=== PATIENT | female | born 1970 | race Caucasian/White ===

== ENCOUNTER → 2017-10-15 | Outpatient (CLI) | payer BC ==
[2017-10-15 13:28] VITALS: BP 121/84; PULSE 97; TEMP 98.2; BMI 27.1
--- NOTE | 2017-10-15 14:08 | P.GSHP ---
History of Present Illness H&P Date: 10/15/17 The patient is a 47-year-old white female who on a routine screening mammogram was noted to have an area of increased microcalcifications in the left breast in the upper outer quadrant area. She underwent stereotactic core biopsy of this area on 09/30/2017 and 2 samples were obtained. The first sample pathologically revealed atypical lobular hyperplasia and a second sample revealed severe atypical ductal hyperplasia changes suspicious for ductal carcinoma in situ. Preprocedure the patient had not noted any changes in her breast no masses or nodules of concern. The patient denies any nipple discharge or changes. The patient is not had any trauma and no evidence of any infection in her breast. family history: maternal grandfather: throat cancer menarche: 14 : 4, 4 children, breast fed: none, first at 33 patient had a hysterectomy, done for prolapse; left ovaries BCP: about 5 years hormones: none past surgical hysterectomy: 1. right breast cyst 2. hysterctomy and bladder suspenscion past medical history: none social history smoke: stopped about 7 months ago, used to smoke 1 PPD for about 15 years alcohol: occasional drugs: none - Constitutional Constitutional: Denies chills, Denies fever - EENT Eyes: denies blurred vision, denies pain Ears: deny: decreased hearing, tinnitus Ears, nose, mouth and throat: Reports headache, Denies sore throat - Breasts Breasts: bilateral: as per HPI - Cardiovascular Comment: high cholesterol Cardiovascular: Reports high blood pressure, Denies chest pain, Denies shortness of breath - Respiratory Comment: former smoker Respiratory: Denies cough, Denies 7 - Gastrointestinal Gastrointestinal: Denies abdominal pain, Denies diarrhea, Denies nausea, Denies vomiting - Genitourinary (Female) Genitourinary: Denies dysuria, Denies hematuria - Menstruation Menstruation: Reports post hysterectomy - Musculoskeletal Musculoskeletal: Denies myalgias - Integumentary Integumentary: Denies pruritus, Denies rash - Neurological Neurological: Denies numbness, Denies weakness - Psychiatric Psychiatric: Denies anxiety, Denies depression - Endocrine Endocrine: Denies fatigue, Denies weight change - Hematologic/Lymphatic Comment: none - Allergic/Immunologic Allergic/Immunologic: Reports seasonal allergies Past Medical History Past Medical History: Hypertension History of Any Multi-Drug Resistant Organisms: None Reported Past Surgical History: Hysterectomy Additional Past Surgical History / Comment(s): 2010 HYSTERECTOMY. 1993 RIGHT BREAST CYST REMOVED Smoking Status: Former smoker Medications and Allergies Home Medications Medication Instructions Recorded Confirmed Type Atorvastatin [Lipitor] 20 mg PO QAM 10/15/17 10/15/17 History Lisinopril [Zestril] 10 mg PO QAM 10/15/17 10/15/17 History Omeprazole [PriLOSEC] 40 mg PO BID 10/15/17 10/15/17 History SUMAtriptan SUCCINATE [Imitrex] 50 mg PO DAILY PRN 10/15/17 10/15/17 History Allergies Allergy/AdvReac Type Severity Reaction Status Date / Time No Known Allergies Allergy Unverified 10/15/17 13:15 Surgical - Exam Vital Signs Temp Pulse BP Pulse Ox 98.2 F 97 121/84 99 10/15/17 13:22 10/15/17 13:22 10/15/17 13:22 10/15/17 13:22 - General well developed, well nourished, no distress - Eyes normal ocular movement, no icteric - ENT no hearing loss, no congestion - Neck no masses, trachea midline - Respiratory normal respiratory effort, clear to auscultation - Cardiovascular Rhythm: regular Heart Sounds: normal: S1, S2 - Abdomen Abdomen: soft, non tender, no guarding, no rigid, no rebound - Integumentary tatoo - Neurologic no disoriented, no combative - Musculoskeletal normal gait, normal posture - Psychiatric oriented to time, oriented to person, oriented to place, speech is normal, memory intact breast exam: right breast: no masses or nodules of concern on multipositional exam, fibrocystic changes right axilla: no adenopathy of concern left breast: echymosis related to core biopsy, multipositional exam no masses of concern, fibrocystic changes left axilla: no adenopathy of concern Results mammograms reviewed with Dr. De Leon
== END | disposition home or self-care (01) ==
LOC: WWCWWP 12:41
PROVIDERS: ATTEND Surgery
DX: Z53.9 Procedure and treatment not carried out, unspecified reason (principal)

== ENCOUNTER 2017-10-26 07:40 | Day surgery (SDC) | payer BC ==
[2017-10-20 15:09] VITALS: BMI 27.1
[~2017-10-26 07:40] MED LIST: DEXAMETHASONE SOD PHOSPHATE 10 MG/ML 1 ML VIAL IV ONE; HEPARIN SODIUM,PORCINE 5,000 UNIT/ML 1 ML VIAL SQ ONE; LACTATED RINGERS 1,000 ML IV SCH; LIDOCAINE 1% 20 ML VIAL (10MG/ML) FOR IV START INTRADERMA PRN; MIDAZOLAM 2 MG/2 ML VIAL IV PRN; ONDANSETRON 4 MG/2 ML VIAL IVP ONE; Pre Op ABX Message 1 EACH MISC MISCELLANE ONE; fentaNYL (PF) 50 MCG/ML 2 ML AMP IV PRN
[2017-10-26] MEDS ORDERED: ALPRAZolam 0.5 MG TAB PO ONE (08:25)
[2017-10-26 08:32] VITALS: RESP 16
--- NOTE | 2017-10-26 08:57 | P.PN ---
Progress Note - Text Progress Note Date: 10/26/17 The patient's case has been presented at tumor board. After discussion and review of the radiographs it has been decided that we will not to do a sentinel node biopsy at this time. I discussed this with the patient and her and they are in agreement. We will proceed with needle localization and excisional biopsy of the area of concern. Depending on results of pathology further recommendation will follow which may necessitate a sentinel node biopsy in the future.
[2017-10-26] MEDS ORDERED: LIDOCAINE 1% INJ 10MG/ML (20 ML MDV) SQ ONE ×2 (09:27→11:56)
[2017-10-26] MEDS ORDERED: SODIUM BICARB 4% 5 ML VIAL (0.48 MEQ/ML) MISCELLANE ONE (09:27)
[2017-10-26] MEDS ORDERED: HEPARIN SODIUM,PORCINE 5,000 UNIT/ML 1 ML VIAL SQ ONE (09:33)
[2017-10-26 10:13] VITALS: TEMP 98
[2017-10-26] MEDS ORDERED: LIDOCAINE 1% INJ 10MG/ML (20 ML MDV) ONE (10:54)
[2017-10-26] MEDS ORDERED: KETOROLAC 30 MG/ML 1 ML VIAL ONE (10:54)
[2017-10-26] MEDS ORDERED: MIDAZOLAM 2 MG/2 ML VIAL ONE (10:54)
[2017-10-26] MEDS ORDERED: fentaNYL (PF) 50 MCG/ML 2 ML AMP ONE (10:54)
[2017-10-26] MEDS ORDERED: PROPOFOL 10 MG/ML 20 ML VIAL IV ONE (10:54)
--- NOTE | 2017-10-26 11:56 | P.OP ---
Date of Procedure: 10/26/17 Preoperative Diagnosis: Left breast stereotactic biopsy atypical hyperplasia Postoperative Diagnosis: Same Procedure(s) Performed: Left breast needle localization excisional biopsy Anesthesia: RINAA Surgeon: Elva Perales Estimated Blood Loss (ml): 30 IV fluids (ml): 600 Pathology: other (breast tissue) Condition: stable Disposition: PACU Indications for Procedure: Stereotactic core biopsy left breast atypical hyperplasia Operative Findings: Very dense breast tissue Description of Procedure: The patient was taken to the operating room and the area of concern in the left breast was localized preoperatively by radiology. The skin was prepped and draped in a sterile fashion after induction of general anesthesia. An incision was made and carried down to the hook of the needle. The breast tissue was very dense with several bleeders were identified and cauterized during the process. The tissue was excised and painted for orientation. Following this the specimen was sent to radiology for x-ray confirmed that the area of concern had been removed. After we were assured that hemostasis was attained titanium clips were placed. The deep tissues were closed using 3-0 Vicryl suture. The skin was closed using 4-0 Monocryl. The patient tolerated the procedure in stable condition. All instrument and sponge counts were correct at the end of the case.
--- NOTE | 2017-10-26 11:58 | P.DS ---
Providers Attending physician: Elva Perales Primary care physician: Annelise Wilkins Plan - Discharge Summary New Discharge Prescriptions: No Action Lisinopril [Zestril] 10 mg PO QAM Atorvastatin [Lipitor] 20 mg PO QAM Omeprazole [PriLOSEC] 40 mg PO BID SUMAtriptan SUCCINATE [Imitrex] 50 mg PO DAILY PRN PRN Reason: Migraine Headache Discharge Medication List Atorvastatin [Lipitor] 20 mg PO QAM 10/15/17 [History] Lisinopril [Zestril] 10 mg PO QAM 10/15/17 [History] Omeprazole [PriLOSEC] 40 mg PO BID 10/15/17 [History] SUMAtriptan SUCCINATE [Imitrex] 50 mg PO DAILY PRN 10/15/17 [History] Follow up Appointment(s)/Referral(s): Elva Perales MD [STAFF PHYSICIAN] - 1 Week Activity/Diet/Wound Care/Special Instructions: Do not drive today Patient may shower after 48 hours Discharge Disposition: HOME SELF-CARE
[2017-10-26 13:53] VITALS: BP 131/92; PULSE 79
--- NOTE | 2017-11-03 10:57 | MM ---
EXAMINATION TYPE: MG surgical specimen LT, MG pre op needle loc LT DATE OF EXAM: 10/26/2017 11:55 AM COMPARISON: NONE HISTORY: Mammotome clip localization Informed consent was obtained and all the patient's questions were answered. The clip in question was localized mammographically. The standard sterile technique was utilized, as well as appropriate local anesthesia with 1% Lidocaine and bicarbonate. Localization needle followed by placement of a guidewire was performed under mammographic guidance. Verification images demonstrate appropriate deployment of the guidewire. The patient tolerated the procedure well and left the department in stable condition. Specimen radiograph demonstrates the clip in question to reside within the specimen. IMPRESSION: Successful needle localization and open biopsy left breast with pathology results pending . Pathology Results: High Risk LEFT BREAST, LUMPECTOMY: Status post prior needle core breast biopsy with post surgical changes. Surrounding Breast Parenchyma: Fibrocystic changes including duct cysts, apocrine metaplasia, usual duct hyperplasia. Focal sclerosing adenosis. Negative for malignancy. Recommendation Follow up mammogram of the left breast in 6 months. MAYRA
== END 2017-10-26 13:50 | disposition home or self-care (01) ==
LOC: OR 07:40
PROVIDERS: ATTEND Surgery
DX: N60.22 Fibroadenosis of left breast (principal); N60.02 Solitary cyst of left breast
CPT/HCPCS: 88307; 76098; 19281; J2250; J1644; J1100; J2405; J2001; J3010; J1885; J2704

== ENCOUNTER → 2017-11-05 | Outpatient (CLI) | payer BC ==
[2017-11-05 09:02] VITALS: BMI 27.1
--- NOTE | 2017-11-05 09:18 | P.PN ---
Progress Note - Text Progress Note Date: 11/05/17 The patient is a 47-year-old white female who is status post needle localization and excisional biopsy on 10/26/2017 for an area of her breast which had shown severe atypical hyperplasia bordering on DCIS. Her final pathology was benign. Her radiograph was reviewed and it was confirmed that the area of concern had been adequately removed. The patient at this time has no complaints. Physical exam: Incision clean and dry Impression/Plan 1. Stereotactic core biopsy of an area of severely atypical hyperplasia bordering on DCIS, final pathology from needle local excisional biopsy benign. 2. Repeat left breast mammogram in 6 months time with physician exam at that time Cc: Dr. Wilkins
--- NOTE | 2017-11-23 09:14 | P.PN ---
Progress Note - Text Progress Note Date: 11/23/17 The patient's case was reviewed at tumor board this morning. After review of her pathology slides by pathology it was felt that she did indeed have ductal carcinoma in situ and not just atypical lobular hyperplasia. At the time of reexcision no residual disease was identified. It was felt that the area of concern had been excised. The recommendation at tumor Board was as follows: 1. medical oncology consultation 2. radiation oncology consultation 3. possible genetic testing 4. patient is not felt to need further surgical intervention The patient was called on the telephone and the following was discussed with her. She understands this and understands that she will be scheduled for these appointments as well as follow-up here after the appointments are performed.
== END | disposition home or self-care (01) ==
LOC: WWCWWP 08:52
PROVIDERS: ATTEND Surgery
DX: Z53.9 Procedure and treatment not carried out, unspecified reason (principal)

== ENCOUNTER → 2018-04-15 | Outpatient (CLI) | payer BC ==
--- NOTE | 2018-04-18 08:18 | MM ---
Reason for exam: follow-up at short interval from prior study. Last mammogram was performed 6 months ago. History: Patient has history of high-risk lesion on a previous biopsy at age 47. High risk MG pre op needle loc LT of the left breast, October 26, 2017. Physical Findings: Nurse did not find any significant physical abnormalities on exam. MG Diagnostic Mammo LT w CAD CC and MLO view(s) were taken of the left breast. Prior study comparison: September 30, 2017, mammogram. October 30, 2013, mammogram. The breast tissue is heterogeneously dense. This may lower the sensitivity of mammography. Post lumpectomy changes laterally. Central posterior nodularity on CC is unchanged. Additional short interval follow up recommended. These results were verbally communicated with the patient and result sheet given to the patient on 04/15/18. ASSESSMENT: Probably benign, BI-RAD 3 RECOMMENDATION: Follow-up diagnostic mammogram of both breasts in 6 months.
== END | disposition home or self-care (01) ==
LOC: RADMAMWWP 15:43
PROVIDERS: ATTEND Surgery
DX: N63.20 Unspecified lump in the left breast, unspecified quadrant (principal)
CPT/HCPCS: 77065

== ENCOUNTER → 2018-04-22 | Outpatient (CLI) | payer BC ==
[2018-04-22 09:10] VITALS: BP 122/78; PULSE 79; RESP 16; TEMP 97.5; BMI 27.4
--- NOTE | 2018-04-22 09:39 | P.PN ---
Subjective Progress Note Date: 04/22/18 Principal diagnosis: Left breast DCIS This is a 48-year-old white female who underwent a left breast vacuum-assisted stereo core biopsy on 10/07/2017. 2 samples were obtained. The first revealed atypical lobular hyperplasia and a second consistent with atypical ductal hyperplasia with changes suspicious for ductal carcinoma in situ. Her biopsy was initially done at [facility]. The patient upon review of the slides at [facility] had the area of atypical hyperplasia upgraded to a ductal carcinoma in situ measuring approximately 3 mm by direct measurement. This was strongly ER HI positive. The patient subsequently went to the operating room for needle localization and excisional [place] [id number]. The pathology from this resection revealed duct cyst apocrine metaplasia and focal sclerosing adenosis with no evidence of malignancy. The patient is presently on tamoxifen however she chose not to undergo radiation therapy. The patient is not having any side effects from the tamoxifen. The patient is having no complaints related to her breasts. She has no lumps or masses in her breasts. No nipple discharge or skin changes of concern. The patient's most recent left breast mammogram was performed 2018. This showed postlumpectomy changes. Central posterior nodularity on the cc view was unchanged. She was recommended to undergo bilateral mammograms in 6 months. The patient states that she did have genetic testing performed and was told that she was at increased risk for melanoma but not for breast cancer based on the genetic testing. Objective - Vital Signs Vital signs: Vital Signs Temp 97.5 F L 04/22/18 09:02 Pulse 79 04/22/18 09:02 Resp 16 04/22/18 09:02 BP 122/78 04/22/18 09:02 Pulse Ox 100 04/22/18 09:02 Intake & Output 04/21/18 04/22/18 04/22/18 18:59 06:59 18:59 Weight 72.575 kg - Exam BM 27.5 - Constitutional General appearance: Present: average body habitus - EENT EENT Comment(s): Diary diffusely enlarged Eyes: Present: EOMI ENT: Present: hearing grossly normal - Neck Neck: Present: normal ROM - Respiratory Respiratory: bilateral: CTA - Cardiovascular Rhythm: regular Heart sounds: normal: S1, S2 - Gastrointestinal General gastrointestinal: Present: soft - Integumentary Integumentary Comment(s): Patient has multiple nevi and 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 Integumentary: Present: normal turgor - Musculoskeletal Musculoskeletal: Present: gait normal - Psychiatric Psychiatric: Present: A&O x's 3, appropriate affect, intact judgment & insight - Additional findings Additional findings: Breast exam: right breast: Multi-positional exam fibrocystic changes right breast is larger than the left breast but no dominant masses or nodules of concern Right axilla: No adenopathy of concern Left breast: Multi-positional exam fibrocystic changes, well-healed scar from prior biopsy no dominant masses or nodules of concern Left axilla: Shotty adenopathy no worrisome changes or adenopathy Assessment and Plan Assessment: Impression: 1. DCIS left breast completely excised on tamoxifen 2. Multiple nevi has follow-up with dermatology in the past, genetic testing indicates increased risk for melanoma 3. Enlarged fibroid follows with endocrinology Plan: 1. Continue tamoxifen 2. Repeat bilateral mammogram in 6 months time with physician exam at that time 3. Follow with dermatology 4. Follow with endocrinology CC: Dr. Annelise Wilkins
== END ==
LOC: WWCWWP 08:58
PROVIDERS: ATTEND Surgery
DX: Z53.9 Procedure and treatment not carried out, unspecified reason (principal)

== ENCOUNTER → 2018-10-17 | Outpatient (CLI) | payer BC ==
--- NOTE | 2018-10-17 11:52 | MM ---
Reason for exam: additional evaluation requested from prior study. Last mammogram was performed 6 months ago. History: Patient has history of high-risk lesion on a previous biopsy at age 47. High risk MG pre op needle loc LT of the left breast, October 26, 2017. Taking other hormone beginning at age 48. Physical Findings: Nurse did not find any significant physical abnormalities on exam. MG Diagnostic Mammo w CAD SANTA Bilateral CC, MLO, and XCCL view(s) were taken. Prior study comparison: April 15, 2018, left breast MG diagnostic mammo LT w CAD. September 30, 2017, mammogram. The breast tissue is heterogeneously dense. This may lower the sensitivity of mammography. No suspicious abnormality. Post surgical change on the left. No significant new findings when compared with previous films. These results were verbally communicated with the patient and result sheet given to the patient on 10/17/18. ASSESSMENT: Benign, BI-RAD 2 RECOMMENDATION: Routine screening mammogram of both breasts in 1 year.
== END | disposition home or self-care (01) ==
LOC: RADMAMWWP 10:54
PROVIDERS: ATTEND Surgery
DX: R92.8 Other abnormal and inconclusive findings on diagnostic imaging of breast (principal)
CPT/HCPCS: 77066

== ENCOUNTER → 2018-10-20 | Outpatient (CLI) | payer BC ==
[2018-10-20 11:47] VITALS: BP 122/86; PULSE 126; RESP 18; TEMP 98.2; BMI 25.7
--- NOTE | 2018-10-20 12:25 | P.GSHP ---
History of Present Illness H&P Date: 10/20/18 Left breast DCIS This is a 48-year-old white female who underwent a left breast vacuum-assisted stereo core biopsy on 10/07/2017. 2 samples were obtained. The first revealed atypical lobular hyperplasia and a second consistent with atypical ductal hyperplasia with changes suspicious for ductal carcinoma in situ. Her biopsy was initially done at [facility]. The patient upon review of the slides at [facility] had the area of atypical hyperplasia upgraded to a ductal carcinoma in situ measuring approximately 3 mm by direct measurement. This was strongly ER SD positive. The patient subsequently went to the operating room for needle localization and excisional [place] [id number]. The pathology from this resection revealed duct cyst apocrine metaplasia and focal sclerosing adenosis with no evidence of malignancy. The patient is presently on tamoxifen however she chose not to undergo radiation therapy. The patient is not having any side effects from the tamoxifen. The patient is having no complaints related to her breasts. She has no lumps or masses in her breasts. No nipple discharge or skin changes of concern. The patient's most recent left breast mammogram was performed 10/17/2018. The patient does not feel any masses or nodules in her breast of concern. The patient states that she did have genetic testing performed and was told that she was at increased risk for melanoma but not for breast cancer based on the [place] testing. Family History: maternal grandfather: throat Hormonal History: menarche: 14 breast fed: no, first born at 33 menopause: hysterctomy at 40, did not take ovaries, prolapse BCP: 2 years hormones: Tamoxifen for the past year Surgical history: 1. Hysterectomy 2. Left breast lumpectomy and sentinel node biopsy 3. cyst right bresat in 20's Medical history: 1. Enlarged thyroid, multiple biopsies 2. reflux Social history: Smoke: Negative Alcohol: Occasional Drugs: Negative - Constitutional Comment: fainted two weeks ago Constitutional: Denies chills, Denies fever - EENT Eyes: denies blurred vision, denies pain Ears: deny: decreased hearing, tinnitus Ears, nose, mouth and throat: Denies headache, Denies sore throat - Breasts Breasts: bilateral: as per HPI - Cardiovascular Cardiovascular: Reports high blood pressure - Respiratory Respiratory: Denies cough, Denies 7 - Gastrointestinal Gastrointestinal: Denies abdominal pain, Denies diarrhea, Denies nausea, Denies vomiting - Genitourinary (Female) Genitourinary: Denies dysuria, Denies hematuria - Menstruation Menstruation: Reports post hysterectomy - Musculoskeletal Musculoskeletal: Denies myalgias - Integumentary Integumentary: Denies pruritus, Denies rash - Neurological Neurological: Denies numbness, Denies weakness - Psychiatric Psychiatric: Denies anxiety, Denies depression - Endocrine Comment: enlarged thyroid - Hematologic/Lymphatic Comment: none - Allergic/Immunologic Comment: none Past Medical History Past Medical History: GERD/Reflux, Hyperlipidemia, Hypertension Additional Past Medical History / Comment(s): HX OF BENIGN THYROID GOITERS, HX MIGRAINES, ABNORMAL MAMMOGRAM History of Any Multi-Drug Resistant Organisms: None Reported Past Surgical History: Hysterectomy Additional Past Surgical History / Comment(s): LEFT BREAST CORE BX, BX OF THYROID GOITERS X2, 2010 HYSTERECTOMY. 1993 RIGHT BREAST BENIGN CYST REMOVED Past Anesthesia/Blood Transfusion Reactions: Postoperative Nausea & Vomiting (PONV) Past Psychological History: No Psychological Hx Reported Smoking Status: Never smoker Past Alcohol Use History: Occasional Additional Past Alcohol Use History / Comment(s): QUIT SMOKING 2016, SMOKED 1/2PPD FROM AGE 24(1993) Past Drug Use History: None Reported - Past Family History Mother Family Medical History: No Reported History Medications and Allergies Home Medications Medication Instructions Recorded Confirmed Type Atorvastatin [Lipitor] 20 mg PO QAM 10/15/17 10/20/18 History Lisinopril [Zestril] 10 mg PO QAM 10/15/17 10/20/18 History Omeprazole [PriLOSEC] 40 mg PO BID 10/15/17 10/20/18 History SUMAtriptan SUCCINATE [Imitrex] 50 mg PO DAILY PRN 10/15/17 10/20/18 History Tamoxifen [Nolvadex] 20 mg PO DAILY 04/22/18 10/20/18 History Allergies Allergy/AdvReac Type Severity Reaction Status Date / Time No Known Allergies Allergy Unverified 10/20/18 11:47 Surgical - Exam Vital Signs Temp Pulse Resp BP Pulse Ox 98.2 F 126 H 18 122/86 97 10/20/18 11:42 10/20/18 11:42 10/20/18 11:42 10/20/18 11:42 10/20/18 11:42 - General well developed, well nourished, no distress - Eyes normal ocular movement - ENT no hearing loss, no congestion - Neck no masses, trachea midline - Respiratory normal respiratory effort, clear to auscultation - Cardiovascular Rhythm: regular Heart Sounds: normal: S1, S2 - Abdomen Abdomen: soft, non tender, no guarding, no rigid, no rebound - Integumentary normal turgor - Neurologic no disoriented, no combative - Musculoskeletal normal gait, normal posture - Psychiatric oriented to time, oriented to person, oriented to place, speech is normal, memory intact breast exam: right breast: Breast multi-positional exam no dominant masses or nodules of concern, dense breast, fibrocystic changes Right axilla: No adenopathy of concern Left breast: Multiple positional exam fibrocystic changes, dense breasts, well- healed scar from prior surgery no evidence of any recurrent disease Left axilla: No adenopathy of concern Results Mammogram results reviewed Assessment and Plan Assessment: Impression 1. Enlarged thyroid, multiple biopsies 2. reflux 3. Grandfather: History of throat cancer 4. History of DCIS left breast 5. Patient presently on tamoxifen 6. Recent episode of fainting most likely related to dehydration will follow with primary care doctor Plan: 1. Continue tamoxifen 2. Repeat examination in 6 months time 3. Bilateral mammogram in 1 year 4. Medical management of any medical conditions Cc: Dr. Wilkins
== END ==
LOC: WWCWWP 11:38
PROVIDERS: ATTEND Surgery
DX: Z53.9 Procedure and treatment not carried out, unspecified reason (principal)

== ENCOUNTER → 2018-12-27 | Outpatient (CLI) | payer BC ==
--- NOTE | 2018-12-28 07:39 | US ---
EXAMINATION TYPE: US kidneys/renal and bladder DATE OF EXAM: 12/27/2018 COMPARISON: NONE CLINICAL HISTORY: Hematuria R31.9. EXAM MEASUREMENTS: Right Kidney: 9.3 x 3.9 x 4.2 cm Left Kidney: 10.3 x4.4 x4.9 cm Post Void Residual Volume: 2.0 mL Right Kidney: wnl Left Kidney: wnl Bladder: wnl Bilateral Jets seen: yes Normal Post Void Residual: yes There is no evidence for hydronephrosis at this point in time. No nephrolithiasis is seen. No jodi s are identified. The urinary bladder is anechoic. Bilateral ureteral jets are seen. IMPRESSION: No suspicious renal abnormality by ultrasound.
== END | disposition home or self-care (01) ==
LOC: RADUSWWP 16:18
PROVIDERS: ATTEND Internal Medicine Hematology & Oncology
DX: R31.9 Hematuria, unspecified (principal)
CPT/HCPCS: 76770

== ENCOUNTER → 2019-11-09 | Outpatient (CLI) | payer BC ==
--- NOTE | 2019-11-10 09:35 | MM ---
Reason for exam: additional evaluation requested from prior study. Last mammogram was performed 1 year and 1 month ago. History: Patient has history of high-risk lesion on a previous biopsy at age 47. High risk MG pre op needle loc LT of the left breast, October 26, 2017. Taking other hormone beginning at age 48. Physical Findings: Nurse did not find any significant physical abnormalities on exam. MG Diagnostic Mammo w CAD SANTA Bilateral CC and MLO view(s) were taken. XCCL view(s) were taken of the left breast. Prior study comparison: October 17, 2018, bilateral MG diagnostic mammo w CAD S[facility]A. April 15, 2018, left breast MG diagnostic mammo LT w CAD. The breast tissue is heterogeneously dense. This may lower the sensitivity of mammography. Right CC lateral asymmetric density persists on spot compression. Left post excisional changes. Asymmetric density laterally at a middle depth persists on additional views. These results were verbally communicated with the patient and result sheet given to the patient on 11/09/19. ASSESSMENT: Incomplete: need additional imaging evaluation, BI-RAD 0 RECOMMENDATION: Ultrasound of both breasts. (right 7-11 o'clock, left upper outer quadrant)
--- NOTE | 2019-11-10 09:38 | USB ---
Reason for exam: additional evaluation requested from abnormal screening. History: Patient has history of high-risk lesion on a previous biopsy at age 47. High risk MG pre op needle loc LT of the left breast, October 26, 2017. Taking other hormone beginning at age 48. US Breast Limited BILAT Right limited breast ultrasound including focal area of concern, retroareolar and axilla demonstrates a 0.5 x 0.4 x 0.4cm cystic, benign lesion at 7 o'clock does not correlate with the mammographic asymmetry. Left limited breast ultrasound including focal area of concern, retroareolar and axilla demonstrates no cystic or solid lesion seen greater than 0.5cm. Right scanned 6-11 o'clock. Left scanned 12-3 o'clock. These results were verbally communicated with the patient and result sheet given to the patient on 11/09/19. ASSESSMENT: Probably benign, BI-RAD 3 RECOMMENDATION: Follow-up diagnostic mammogram of both breasts in 6 months.
== END | disposition home or self-care (01) ==
LOC: RADMAMWWP 13:37
PROVIDERS: ATTEND Surgery
DX: R92.8 Other abnormal and inconclusive findings on diagnostic imaging of breast (principal)
CPT/HCPCS: 77066

== ENCOUNTER → 2019-11-30 | Outpatient (CLI) | payer BC ==
[2019-11-30 16:50] VITALS: BP 119/87; PULSE 88; RESP 18; TEMP 98.1
--- NOTE | 2019-11-30 17:00 | P.PN ---
Subjective Progress Note Date: 11/30/19 Principal diagnosis: DCIS of the left breast Chely is a 48-year-old white female who underwent a left breast vacuum- assisted stereo core biopsy on 10/07/2017. 2 samples were obtained. The first revealed atypical lobular hyperplasia and a second consistent with atypical ductal hyperplasia with changes suspicious for ductal carcinoma in situ. Her biopsy was initially done at [facility]. The patient upon review of the slides at [facility] had the area of atypical hyperplasia upgraded to a ductal carcinoma in situ measuring approximately 3 mm by direct measurement. This was strongly ER ID positive. The patient subsequently went to the operating room for needle localization and excisional [place] [id number]. The pathology from this resection revealed duct cyst apocrine metaplasia and focal sclerosing adenosis with no evidence of malignancy. The patient is presently on tamoxifen however she chose not to undergo radiation therapy. The patient is not having any side effects from the tamoxifen. The patient is having no complaints related to her breasts. She has no lumps or masses in her breasts. No nipple discharge or skin changes of concern. The patient's most recent bilateral mammogram was performed 11/09/19, this was felt to be incomplete and bilateral breast ultrasounds were recommended. These were performed on the same date. In the right breast the patient was tentatively 0.5 x 0.4 cm cystic lesion at 7:00 which did not correlate with the mammographic asymmetry. In the left breast the ultrasound was noted to have no cystic or solid lesion greater than 0.5 cm. The findings were felt to be probably benign and follow-up diagnostic mammogram of both breasts in 6 months was recommended. This was benign BIRADS 3. The patient does not feel any masses or nodules in her breast of concern. The patient states that she did have genetic testing performed and was told that she was at increased risk for melanoma but not for breast cancer based on the genetic testing. Family History: maternal grandfather: throat Hormonal History: menarche: 14 breast fed: no, first born at 33 menopause: hysterctomy at 40, did not take ovaries, prolapse BCP: 2 years hormones: Tamoxifen for the past year Surgical history: 1. Hysterectomy 2. Left breast lumpectomy and sentinel node biopsy 3. cyst right breast in 20's Medical history: 1. Enlarged thyroid, multiple biopsies, continued monitering 2. reflux Social history: Smoke: Negative Alcohol: Occasional Drugs: Negative - Constitutional Comment: no further fainting Constitutional: Denies chills, Denies fever - EENT Eyes: denies blurred vision, denies pain Ears: deny: decreased hearing, tinnitus Ears, nose, mouth and throat: Denies headache, Denies sore throat, thyroid nodule followed by endocrine - Breasts Breasts: bilateral: as per HPI - Cardiovascular Cardiovascular: Reports high blood pressure - Respiratory Respiratory: Denies cough, - Gastrointestinal Gastrointestinal: Denies abdominal pain, Denies diarrhea, Denies nausea, Denies vomiting - Genitourinary (Female) Genitourinary: Denies dysuria, Denies hematuria - Menstruation Menstruation: Reports post hysterectomy - Musculoskeletal Musculoskeletal: Denies myalgias - Integumentary Integumentary: Denies pruritus, Denies rash - Neurological Neurological: Denies numbness, Denies weakness - Psychiatric Psychiatric: Denies anxiety, Denies depression - Endocrine Comment: enlarged thyroid - Hematologic/Lymphatic Comment: none - Allergic/Immunologic Comment: none Objective - Vital Signs Vital signs: Intake & Output 11/29/19 11/30/19 11/30/19 18:59 06:59 18:59 Weight 68.039 kg - Exam BMI 25.7 - Constitutional General appearance: Present: average body habitus - EENT EENT Comment(s): enlarged thyroid Eyes: Present: EOMI ENT: Present: hearing grossly normal - Neck Neck: Present: normal ROM - Respiratory Respiratory: bilateral: CTA - Cardiovascular Rhythm: regular Heart sounds: normal: S1, S2 - Gastrointestinal General gastrointestinal: Present: normal bowel sounds, soft - Integumentary Integumentary: Present: normal turgor - Musculoskeletal Musculoskeletal: Present: gait normal - Psychiatric Psychiatric: Present: A&O x's 3, appropriate affect, intact judgment & insight - Additional findings Additional findings: Breast exam BRA 38DD inspection: right breast larger than left breast, grade 2 ptosis bilateral Palpation: Right breast: Multi-positional exam fibrocystic changes, no dominant masses or nodules of concern Right axilla: No adenopathy of concern Left breast: Multi-positional exam no dominant masses or nodules of concern Left axilla: No adenopathy of concern Assessment and Plan Assessment: Impression/Plan: 1. Patient status post lumpectomy left breast DCIS doing well at this time with no evidence of recurrent disease she is on tamoxifen but is opted not to have radiation therapy she had a recent mammogram and bilateral breast ultrasound will have bilateral repeat mammograms in 6 months 2. enlarged thyroid, follow with civil design specialist CC: Dr. Wilkins encounter 15 minutes, > 50% of time in planning and counselling
== END | disposition home or self-care (01) ==
LOC: WWCWWP 16:21
PROVIDERS: ATTEND Surgery
DX: Z53.9 Procedure and treatment not carried out, unspecified reason (principal)

== ENCOUNTER → 2020-01-31 | Outpatient (CLI) | payer BC ==
--- NOTE | 2020-01-31 18:10 | US ---
EXAMINATION TYPE: US kidneys/renal and bladder DATE OF EXAM: 01/31/2020 COMPARISON: US 2019 CLINICAL HISTORY: R31.9 Hematuria. Intermittent hematuria x 1 month EXAM MEASUREMENTS: Right Kidney: 9.2 x 4.2 x 4.5 cm Left Kidney: 10.2 x 5.1 x 5.0 cm Right Kidney: no hydronephrosis or masses seen Left Kidney: no hydronephrosis or masses seen Bladder: wnl Bilateral Jets seen: right jet not seen, left jet seen There is no pathologic calcification. Cortical measured differentiation is maintained. IMPRESSION: Renal sizes as described. Additional findings above.
== END | disposition home or self-care (01) ==
LOC: RADUSWWP 16:25
PROVIDERS: ATTEND Internal Medicine Hematology & Oncology
DX: R31.9 Hematuria, unspecified (principal)
CPT/HCPCS: 76770

== ENCOUNTER → 2020-06-04 | Outpatient (CLI) | payer BC ==
--- NOTE | 2020-06-05 08:33 | MM ---
Reason for exam: follow-up at short interval from prior study. Last mammogram was performed 7 months ago. History: Patient has history of high-risk lesion on a previous biopsy at age 47. High risk MG pre op needle loc LT of the left breast, October 26, 2017. Took hormonal contraceptives for 3 years beginning at age 19. Taking other hormone for 2 years beginning at age 48. Physical Findings: Nurse did not find any significant physical abnormalities on exam. MG 3D Diag Mammo W/Cad SANTA Bilateral CC and MLO view(s) were taken. Prior study comparison: November 09, 2019, bilateral MG diagnostic mammo w CAD SANTA. October 17, 2018, bilateral MG diagnostic mammo w CAD SANTA. The breast tissue is heterogeneously dense. This may lower the sensitivity of mammography. No significant new findings when compared with previous films. These results were verbally communicated with the patient and result sheet given to the patient on 06/04/20. ASSESSMENT: Benign, BI-RAD 2 RECOMMENDATION: Routine screening mammogram of both breasts in 5 months. Back on schedule for October 2020.
== END | disposition home or self-care (01) ==
LOC: RADMAMWWP 14:58
PROVIDERS: ATTEND Surgery
DX: R92.2 Inconclusive mammogram (principal)
CPT/HCPCS: 77062; 77066

== ENCOUNTER → 2020-06-28 | Outpatient (CLI) | payer BC ==
[2020-06-28 16:24] VITALS: BP 124/88; PULSE 95; RESP 18; TEMP 98.2
--- NOTE | 2020-06-28 16:33 | P.PN ---
Subjective Progress Note Date: 06/28/20 Principal diagnosis: DCIS left breast DCIS of the left breast Chely is a 50-year-old white female who underwent a left breast vacuum- assisted stereo core biopsy on 10/07/2017. 2 samples were obtained. The first revealed atypical lobular hyperplasia and a second consistent with atypical ductal hyperplasia with changes suspicious for ductal carcinoma in situ. Her biopsy was initially done at [facility]. The patient upon review of the slides at [facility] had the area of atypical hyperplasia upgraded to a ductal carcinoma in situ measuring approximately 3 mm by direct measurement. This was strongly ER [place] positive. The patient subsequently went to the operating room for needle localization and excisional [place] [id number]. The pathology from this resection revealed duct cyst apocrine metaplasia and focal sclerosing adenosis with no evidence of malignancy. The patient is presently on tamoxifen however she chose not to undergo radiation therapy. The patient is not having any side effects from the t amoxifen. The patient is having no complaints related to her breasts. She has no lumps or masses in her breasts. No nipple discharge or skin changes of concern. A bilateral mammogram was performed and [id number]. This was benign BIRADS 2. The patient does not feel any masses or nodules in her breast of concern. The patient states that she did have genetic testing performed and was told that she was at increased risk for melanoma but not for breast cancer based on the genetic testing. She follows with dermatology. Patient concerned about asymmetry of the breast. Hard to find close to fit properly. She has back pain. An shoulder notching. 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 Calvo 12-22-19 Family History: maternal grandfather: throat Hormonal History: menarche: 14 breast fed: no, first born at 33 menopause: hysterctomy at 40, did not take ovaries, prolapse BCP: 2 years hormones: Tamoxifen for the past year Surgical history: 1. Hysterectomy 2. Left breast lumpectomy and sentinel node biopsy 3. cyst right breast in 20's Medical history: 1. Enlarged thyroid, multiple biopsies, continued monitering 2. reflux Social history: Smoke: Negative Alcohol: Occasional Drugs: Negative - Constitutional Comment: no further fainting Constitutional: Denies chills, Denies fever - EENT Eyes: denies blurred vision, denies pain Ears: deny: decreased hearing, tinnitus Ears, nose, mouth and throat: Denies headache, Denies sore throat, thyroid nodule followed by endocrine - Breasts Breasts: bilateral: as per HPI - Cardiovascular Cardiovascular: Reports high blood pressure - Respiratory Respiratory: Denies cough, - Gastrointestinal Gastrointestinal: Denies abdominal pain, Denies diarrhea, Denies nausea, Denies vomiting - Genitourinary (Female) Genitourinary: Denies dysuria, Denies hematuria - Menstruation Menstruation: Reports post hysterectomy - Musculoskeletal Musculoskeletal: Denies myalgias - Integumentary Integumentary: Denies pruritus, Denies rash - Neurological Neurological: Denies numbness, Denies weakness - Psychiatric Psychiatric: Denies anxiety, Denies depression - Endocrine Comment: enlarged thyroid - Hematologic/Lymphatic Comment: none - Allergic/Immunologic Comment: Objective - Constitutional General appearance: Present: cooperative - EENT Eyes: Present: EOMI ENT: Present: hearing grossly normal - Neck Neck: Present: normal ROM - Respiratory Respiratory: bilateral: CTA - Cardiovascular Rhythm: regular Heart sounds: normal: S1, S2 - Gastrointestinal General gastrointestinal: Present: soft - Integumentary Integumentary: Present: normal turgor - Musculoskeletal Musculoskeletal: Present: gait normal - Psychiatric Psychiatric: Present: A&O x's 3, appropriate affect, intact judgment & insight - Additional findings Additional findings: breast exam: BRA 38DD or E Inspection: Right breast larger than left breasts, ptosis right breast 2/3, ptosis left breast to Palpation: Right breast: Multi-positional exam fibrocystic changes, no dominant masses or nodules of concern Right axilla: No adenopathy of concern left breast: Multiple positional exam well-healed scar from prior surgery no dominant masses or nodules of concern Left axilla: No adenopathy of concern Assessment and Plan Assessment: Impression: 1. Patient status post left breast lumpectomy for DCIS or evidence of recurrent cancer 2. Patient is presently on tamoxifen follows with medical oncology 3. Fibrocystic breast changes 4. Recent bilateral mammogram benign 5. Asymmetry of the breast Plan: 1. Continue close surveillance repeat bilateral mammogram in 1 year 2. Continue tamoxifen 2. Appointment with plastic surgery Dr. Landis regarding asymmetry of the breast Cc: Dr. Wilkins
== END ==
LOC: WWCWWP 15:36
PROVIDERS: ATTEND Surgery
DX: D05.12 Intraductal carcinoma in situ of left breast (principal); N60.11 Diffuse cystic mastopathy of right breast; N64.89 Other specified disorders of breast; Z98.890 Other specified postprocedural states

== ENCOUNTER → 2021-06-06 | Outpatient (CLI) | payer BC ==
--- NOTE | 2021-06-10 07:52 | MM ---
Reason for exam: additional evaluation requested from prior study. Last mammogram was performed 1 year ago. History: Patient has history of breast cancer at age 47 and has history of high-risk lesion on a previous biopsy at age 47. Reductions of both breasts, September 2020. High risk MG pre op needle loc LT of the left breast, October 26, 2017. Took hormonal contraceptives for 3 years beginning at age 19. Taking other hormone for 4 years beginning at age 48. Physical Findings: A clinical breast exam by your physician is recommended on an annual basis and results should be correlated with mammographic findings. MG Diagnostic Mammo w CAD SANTA Bilateral CC and MLO view(s) were taken. Prior study comparison: June 04, 2020, bilateral MG 3d diag mammo w/cad SANTA. November 09, 2019, bilateral MG diagnostic mammo w CAD SANTA. The breast tissue is heterogeneously dense. This may lower the sensitivity of mammography. There are clips in the posterior left breast. Decrease in size bilateral breasts consistent with known reduction changes. ASSESSMENT: Benign, BI-RAD 2 RECOMMENDATION: Follow-up diagnostic mammogram of both breasts in 1 year.
== END | disposition home or self-care (01) ==
LOC: RADMAMWWP 14:47
PROVIDERS: ATTEND Surgery
DX: R92.2 Inconclusive mammogram (principal); Z85.3 Personal history of malignant neoplasm of breast
CPT/HCPCS: 77066

== ENCOUNTER → 2021-06-13 | Outpatient (CLI) | payer BC ==
--- NOTE | 2021-06-13 15:50 | P.PN ---
Subjective Progress Note Date: 06/13/21 Principal diagnosis: left breast DCIS DCIS of the left breast Chely is a 50-year-old white female who underwent a left breast vacuum- assisted stereo core biopsy on 10/07/2017. 2 samples were obtained. The first revealed atypical lobular hyperplasia and a second consistent with atypical ductal hyperplasia with changes suspicious for ductal carcinoma in situ. Her biopsy was initially done at [facility]. The patient upon review of the slides at [facility] had the area of atypical hyperplasia upgraded to a ductal carcinoma in situ measuring approximately 3 mm by direct measurement. This was strongly ER [place] positive. The patient subsequently went to the operating room for needle localization and excisional [place] [id number]. The pathology from this resection revealed duct cyst apocrine metaplasia and focal sclerosing adenosis with no evidence of malignancy. The patient is presently on tamoxifen however she chose not to undergo radiation therapy. The patient is not having any side effects from the t amoxifen. The patient is having no complaints related to her breasts. She has no lumps or masses in her breasts. No nipple discharge or skin changes of concern. A bilateral mammogram was performed and [id number]. This was benign BIRADS 2. The patient does not feel any masses or nodules in her breast of concern. The patient states that she did have genetic testing performed and was told that she was at increased risk for melanoma but not for breast cancer based on the genetic testing. She follows with dermatology. 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 Calvo 12-22-19 06-13-21 The patient had a bilateral mammogram on 06-06-21 which was BENIGN BIRAD 2. Patient does not feel any new lumps masses or nodules of concern in either breast.; She had a bilateral breast reduction done in September [address] Landis. She went from a 30 8D to a 30 8C/D Family History: maternal grandfather: throat Hormonal History: menarche: 14 breast fed: no, first born at 33 menopause: hysterctomy at 40, did not take ovaries, prolapse BCP: 2 years hormones: Tamoxifen for the past year Surgical history: 1. Hysterectomy 2. Left breast lumpectomy and sentinel node biopsy 3. cyst right breast in 4. bilateral breast reduction in September 2020, she is happy with this Medical history: 1. Enlarged thyroid, multiple biopsies, continued monitoring 2. reflux Social history: Smoke: Negative Alcohol: Occasional Drugs: Negative - Constitutional Comment: no further fainting Constitutional: Denies chills, Denies fever - EENT Eyes: denies blurred vision, denies pain Ears: deny: decreased hearing, tinnitus Ears, nose, mouth and throat: Denies headache, Denies sore throat, thyroid nodule followed by endocrine - Breasts Breasts: bilateral: as per HPI - Cardiovascular Cardiovascular: Reports high blood pressure - Respiratory Respiratory: Denies cough, - Gastrointestinal Gastrointestinal: Denies abdominal pain, Denies diarrhea, Denies nausea, Denies vomiting - Genitourinary (Female) Genitourinary: Denies dysuria, Denies hematuria - Menstruation Menstruation: Reports post hysterectomy - Musculoskeletal Musculoskeletal: Denies myalgias - Integumentary Integumentary: Denies pruritus, Denies rash - Neurological Neurological: Denies numbness, Denies weakness - Psychiatric Psychiatric: Denies anxiety, Denies depression - Endocrine Comment: enlarged thyroid - Hematologic/Lymphatic Comment: none Objective - Constitutional General appearance: Present: cooperative - EENT Eyes: Present: EOMI ENT: Present: hearing grossly normal - Neck Neck: Present: normal ROM - Respiratory Respiratory: bilateral: CTA - Cardiovascular Rhythm: regular Heart sounds: normal: S1, S2 - Integumentary Integumentary: Present: normal turgor - Musculoskeletal Musculoskeletal: Present: gait normal - Psychiatric Psychiatric: Present: A&O x's 3, appropriate affect, intact judgment & insight - Additional findings Additional findings: Breast Exam: BRA: 38C/D inspection: Well-healed scars from prior surgery Palpation: Right breast: Multiple positional exam fibrocystic changes no dominant masses or nodules of concern Right axilla: No adenopathy of concern Left breast: Multiple positional exam fibrocystic changes no dominant masses or nodules of concern Left axilla: No adenopathy of concern Assessment and Plan Assessment: Impression: Fibrocystic breast changes Prior history of DCIS left breast no evidence of recurrence Recent bilateral mammogram [id number] benign BIRADS 2 Bilateral breast reduction mammoplasties continue tamoxifen Plan: Follow up in 6 months for breast examination Bilateral mammogram in 1 year Follow-up sooner any questions or concerns Cc: Dr. Wilkins
[2021-06-13 15:55] VITALS: BP 121/85; PULSE 106; RESP 16; TEMP 97.8
== END ==
LOC: WWCWWP 15:29
PROVIDERS: ATTEND Surgery
DX: N60.11 Diffuse cystic mastopathy of right breast (principal); N60.12 Diffuse cystic mastopathy of left breast; Z85.3 Personal history of malignant neoplasm of breast; Z98.890 Other specified postprocedural states

== ENCOUNTER → 2022-01-16 | Outpatient (CLI) | payer BC ==
[2022-01-16 15:10] VITALS: BP 123/88; PULSE 91; RESP 16; TEMP 97.4
--- NOTE | 2022-01-16 15:22 | P.PN ---
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 2 samples were obtained. The first revealed atypical lobular hyperplasia and a second consistent with atypical ductal hyperplasia with changes suspicious for ductal carcinoma in situ. Her biopsy was initially done at [facility]. The patient upon review of the slides at [facility] had the area of atypical hyperplasia upgraded to a ductal carcinoma in situ measuring approximately 3 mm by direct measurement. This was strongly ER FL positive. The patient subsequently went to the operating room for needle localization and excisional [place] [address]. The pathology from this resection revealed duct cyst apocrine metaplasia and focal sclerosing adenosis with no evidence of malignancy. The patient is presently on tamoxifen however she chose not to undergo radiation therapy. The patient is not having any side effects from the tamoxifen. The patient is having no complaints related to her breasts. She has no lumps or masses in her breasts. No nipple discharge or skin changes of concern. A bilateral mammogram was performed 06-06-21. This was benign BIRADS 2. The patient does not feel any masses or nodules in her breast of concern. The patient states that she did have genetic testing performed and was told that she was at increased risk for melanoma but not for breast cancer based on the genetic testing. She follows with dermatology. 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 Patient does not feel any new lumps masses or nodules of concern in either breast.; She had a bilateral breast reduction done in September [address] Landis. She went from a 38D to a 38C/D 01-16-22 Patient had a bilateral mammogram and 320 [id number] which was benign BIRADS 2. She has no new lumps masses or nodules of concern in either breast. Family History: maternal grandfather: melchor Hormonal History: menarche: 14 breast fed: no, first born at 33 menopause: hysterctomy at 40, did not take ovaries, prolapse BCP: 2 years hormones: Tamoxifen for the past year Surgical history: 1. Hysterectomy 2. Left breast lumpectomy and sentinel node biopsy 3. cyst right breast in 4. bilateral breast reduction in September 2020, she is happy with this Medical history: 1. Enlarged thyroid, multiple biopsies, continued monitoring 2. reflux Social history: Smoke: Negative Alcohol: Occasional Drugs: Negative - Constitutional Comment: no further fainting Constitutional: Denies chills, Denies fever - EENT Eyes: denies blurred vision, denies pain Ears: deny: decreased hearing, tinnitus Ears, nose, mouth and throat: Denies headache, Denies sore throat, thyroid nodule followed by endocrine - Breasts Breasts: bilateral: as per HPI - Cardiovascular Cardiovascular: Reports high blood pressure - Respiratory Respiratory: Denies cough, - Gastrointestinal Gastrointestinal: Denies abdominal pain, Denies diarrhea, Denies nausea, Denies vomiting - Genitourinary (Female) Genitourinary: Denies dysuria, Denies hematuria - Menstruation Menstruation: Reports post hysterectomy - Musculoskeletal Musculoskeletal: Denies myalgias - Integumentary Integumentary: Denies pruritus, Denies rash - Neurological Neurological: Denies numbness, Denies weakness - Psychiatric Psychiatric: Denies anxiety, Denies depression - Endocrine Comment: enlarged thyroid - Hematologic/Lymphatic Comment: none Objective - Vital Signs Vital signs: Vital Signs Temp 97.4 F L 01/16/22 15:06 Pulse 91 01/16/22 15:06 Resp 16 01/16/22 15:06 BP 123/88 01/16/22 15:06 Pulse Ox 96 01/16/22 15:06 FiO2 Intake & Output 01/15/22 01/16/22 01/16/22 18:59 06:59 18:59 Weight 74.843 kg - Constitutional General appearance: Present: cooperative - EENT Eyes: Present: EOMI ENT: Present: hearing grossly normal - Neck Neck: Present: normal ROM - Respiratory Respiratory: bilateral: CTA - Cardiovascular Heart sounds: normal: S1, S2 - Gastrointestinal General gastrointestinal: Present: soft - Integumentary Integumentary: Present: normal turgor - Musculoskeletal Musculoskeletal: Present: gait normal - Psychiatric Psychiatric: Present: A&O x's 3, appropriate affect, intact judgment & insight - Additional findings Additional findings: Breast Exam: BRA: 38C Inspection: Bilateral grade 2 ptosis, post surgical changes bilateral from reduction mammoplasties Palpation: Right breast: Multiple position on exam post surgical changes, no dominant masses or not his of concern Right axilla: No adenopathy of concern Left breast: Multi-positional exam postsurgical changes no dominant masses or nodules of concern Breasts are dense bilaterally Left axilla: No adenopathy of concern Assessment and Plan Assessment: Impression: Patient status post left breast DCIS lumpectomy, patient did not have radiation therapy she is on tamoxifen and is on year for she is being followed conservatively Recent bilateral mammogram 01642 BIRADS 2 Plan: Continue tamoxifen Bilateral mammogram in May 2022 with appointment at that time Continue to follow with medical oncology Cc: Dr. Wilkins
== END | disposition home or self-care (01) ==
LOC: WWCWWP 14:59
PROVIDERS: ATTEND Surgery
DX: Z53.9 Procedure and treatment not carried out, unspecified reason (principal)

== ENCOUNTER → 2022-06-18 | Outpatient (CLI) | payer BC ==
--- NOTE | 2022-06-18 15:40 | MM ---
Reason for Exam: Follow-up at short interval from prior study. Last mammogram was performed 1 year(s) and 1 month(s) ago. Patient History: Menarche at age 14. First Full-Term at age 32. Late child-bearing (after 32). Hysterectomy at age 40. Breast cancer, left, age 47. Hormonal Contraceptives for 3 years from age 19 until age 22. 09/2020, Bilateral Reduction. 10/26/2017, High risk Core Biopsy on the left side. Prior Study Comparison: 11/09/2019 Bilateral Diagnostic Mammogram, [facility]. 06/04/2020 Bilateral Diagnostic Mammogram, [facility]. 06/06/2021 Bilateral Diagnostic Mammogram, [facility]. Tissue Density: There are scattered fibroglandular densities. Findings: Analyzed By CAD. Status post bilateral reduction mammoplasty and additional excision on the left. There is new 9 mm oval nodularity 12:00 position right breast middle to posterior depth. Further ultrasound evaluation recommended. The previous coil cyst calcification medial centrally in the right breast no longer identified. In this region, there are now grouped heterogeneous calcifications, approximately 2:00 position. Otherwise, no significant change. Overall Assessment: Incomplete: need additional imaging evaluation, BI-RAD 0 Management: Diagnostic Breast Ultrasound of the right breast. Electronically signed and approved by: Nyla Rome M.D. Radiologist
--- NOTE | 2022-06-18 15:45 | P.PN ---
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 2 samples were obtained. The first revealed atypical lobular hyperplasia and a second consistent with atypical ductal hyperplasia with changes suspicious for ductal carcinoma in situ. Her biopsy was initially done at [facility]. The patient upon review of the slides at [facility] had the area of atypical hyperplasia upgraded to a ductal carcinoma in situ measuring approximately 3 mm by direct measurement. This was strongly ER IL positive. The patient subsequently went to the operating room for needle localization and excisional biopsy the area of concern was performed on . The pathology from this resection revealed duct cyst apocrine metaplasia and focal sclerosing adenosis with no evidence of malignancy. The patient is presently on tamoxifen however she chose not to undergo radiation therapy. The patient is not having any side effects from the tamoxifen. The patient is having no complaints related to her breasts. She has no lumps or masses in her breasts. No nipple discharge or skin changes of concern. A bilateral mammogram was performed 06-06-21. This was benign BIRADS 2. The patient does not feel any masses or nodules in her breast of concern. The patient states that she did have genetic testing performed and was told that she was at increased risk for melanoma but not for breast cancer based on the genetic testing. She follows with dermatology. 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 Patient does not feel any new lumps masses or nodules of concern in either breast.; She had a bilateral breast reduction done in September [address] Landis. She went from a 38D to a 38C/D 01-16-22 Patient had a bilateral mammogram and 320 522 which was benign BIRADS 2. She has no new lumps masses or nodules of concern in either breast. 06-18-22 Her bilateral mammogram performed on , this resulted in an ultrasound of the right breast. No lesions of concern were identified in the left breast. In the right breast there were some new microcalcifications for which stereotactic core biopsy was recommended in the upper inner aspect of the breast. An ultrasound was performed also an area of nodularity which is felt to be separate from microcalcifications and an ultrasound core biopsy was also recommended. The patient herself does not complain of any new lumps masses or nodules of concern in either breast. Family History: maternal grandfather: melchor Hormonal History: menarche: 14 breast fed: no, first born at 33 menopause: hysterctomy at 40, did not take ovaries, prolapse BCP: 2 years hormones: Tamoxifen for the past year Surgical history: 1. Hysterectomy 2. Left breast lumpectomy and sentinel node biopsy 3. cyst right breast in 4. bilateral breast reduction in September 2020, she is happy with this Medical history: 1. Enlarged thyroid, multiple biopsies, continued monitoring 2. reflux 3. head tremors will change her heart burn medication; this was worked up and was negative for any lesions Social history: Smoke: Negative Alcohol: Occasional Drugs: Negative - Constitutional Comment: no further fainting Constitutional: Denies chills, Denies fever - EENT Eyes: denies blurred vision, denies pain Ears: deny: decreased hearing, tinnitus Ears, nose, mouth and throat: Denies headache, Denies sore throat, thyroid nodule followed by endocrine - Breasts Breasts: bilateral: as per HPI - Cardiovascular Cardiovascular: Reports high blood pressure - Respiratory Respiratory: Denies cough, - Gastrointestinal Gastrointestinal: Denies abdominal pain, Denies diarrhea, Denies nausea, Denies vomiting - Genitourinary (Female) Genitourinary: Denies dysuria, Denies hematuria - Menstruation Menstruation: Reports post hysterectomy - Musculoskeletal Musculoskeletal: Denies myalgias - Integumentary Integumentary: Denies pruritus, Denies rash - Neurological Neurological: Denies numbness, Denies weakness - Psychiatric Psychiatric: Denies anxiety, Denies depression - Endocrine Comment: enlarged thyroid - Hematologic/Lymphatic Comment: none Objective - Constitutional General appearance: Present: cooperative - EENT Eyes: Present: EOMI ENT: Present: hearing grossly normal - Neck Neck: Present: normal ROM - Respiratory Respiratory: bilateral: CTA - Cardiovascular Rhythm: regular Heart sounds: normal: S1, S2 - Gastrointestinal General gastrointestinal: Present: soft - Integumentary Integumentary: Present: normal turgor - Musculoskeletal Musculoskeletal: Present: gait normal - Psychiatric Psychiatric: Present: A&O x's 3, appropriate affect, intact judgment & insight - Additional findings Additional findings: Breast Exam: BRA: 38C Inspection: Bilateral grade 2 ptosis, post surgical changes bilateral from reduction mammoplasties Palpation: Right breast: Multiple position on exam post surgical changes, no dominant masses or not his of concern Right axilla: No adenopathy of concern Left breast: Multi-positional exam postsurgical changes no dominant masses or nodules of concern Breasts are dense bilaterally Left axilla: No adenopathy of concern Assessment and Plan Assessment: Impression: Patient status post left breast DCIS lumpectomy, patient did not have radiation therapy she is on tamoxifen and is on year for she is being followed conservatively Recent bilateral mammogram 06-18-22, additional ultrasound views were obtained of the right breast, this was reviewed personally with Dr. Rome recommendation was for stereo biopsy of an area of microcalcifications in the right breast as well as ultrasound-guided core biopsy of a nodular area in the right breast Plan: Continue tamoxifen right breast ultrasound and then stero core biopsy; will do ultrasound biopsy first Continue to follow with medical oncology Cc: Dr. Wilkins
--- NOTE | 2022-06-18 15:53 | USB ---
Reason for Exam: Additional evaluation requested from abnormal screening. Patient History: Menarche at age 14. First Full-Term at age 32. Late child-bearing (after 32). Hysterectomy at age 40. Breast cancer, left, age 47. Hormonal Contraceptives for 3 years from age 19 until age 22. 09/2020, Bilateral Reduction. 10/26/2017, High risk Core Biopsy on the left side. Technique: Method: Targeted. Prior Study Comparison: 11/09/2019 Bilateral Diagnostic Mammogram, [facility]. 11/09/2019 Bilateral Diagnostic Ultrasound, [facility]. 06/04/2020 Bilateral Diagnostic Mammogram, [facility]. 06/06/2021 Bilateral Diagnostic Mammogram, [facility]. Findings: The axilla of the right breast and the retroareolar of the right breast were scanned. Targeted ultrasound 11-1 o'clock right breast including the subareolar region and axilla. At the 1:00 position, 5 cm from the nipple, there is an oval hypoechoic lesion with posterior shadowing measuring 8 x 6 x 4 mm. Likely mammographic correlate. Tissue sampling recommended. No other solid or cystic lesion. Overall Assessment: Suspicious, BI-RAD 4 Management: Ultrasound Core Biopsy of the right breast. Stereotactic Core Biopsy of the right breast. Initial ultrasound-guided core needle biopsy 1:00 right breast nodule. Stereotactic core needle biopsy to be performed on a separate day of the medial microcalcifications. Plan implemented in conjunction with Dr. Andre Nelson. Results were given to the patient verbally at the time of exam. Electronically signed and approved by: Nyla Rome M.D. Radiologist
== END | disposition home or self-care (01) ==
LOC: RADMAMWWP 14:19
PROVIDERS: ATTEND Surgery
DX: R92.8 Other abnormal and inconclusive findings on diagnostic imaging of breast (principal)
CPT/HCPCS: 77066

== ENCOUNTER → 2022-06-18 | Outpatient (CLI) | payer BC ==
[2022-06-18 15:42] VITALS: BP 142/87; PULSE 109; RESP 17; TEMP 98
== END ==
LOC: WWCWWP 14:21
PROVIDERS: ATTEND Surgery
DX: R92.8 Other abnormal and inconclusive findings on diagnostic imaging of breast (principal)

== ENCOUNTER → 2022-07-03 | Day surgery (SDC) | payer BC ==
--- NOTE | 2022-07-13 10:17 | MM ---
Reason for Exam: Post Procedure Mammogram. Last screening mammogram was performed less than 1 month ago. Patient History: Menarche at age 14. First Full-Term at age 32. Late child-bearing (after 32). Hysterectomy at age 40. Breast cancer, left, age 47. Hormonal Contraceptives for 3 years from age 19 until age 22. 09/2020, Bilateral Reduction. 10/26/2017, High risk Core Biopsy on the left side. Prior Study Comparison: 06/04/2020 Bilateral Diagnostic Mammogram, [facility]. 06/06/2021 Bilateral Diagnostic Mammogram, [facility]. 06/18/2022 Bilateral MG diagnostic mammo w CAD [facility], [facility]. Tissue Density: Right: There are scattered fibroglandular densities. Pathology Description: Location: 1 o'clock, upper inner quadrant. Marker Left Behind. Needle Type: Mammotome Cores: 5 Skin Nicks: 1 Gauge: 13 The procedure of ultrasound guided core biopsy was explained to the patient. Benefits, alternatives, and risks were discussed. An informed consent was then obtained. A timeout was performed. The patient was placed in supine positioning for imaging and for the procedure. The overlying skin was prepped and draped in usual sterile fashion. Lidocaine was used as anesthetic into the skin and subcutaneous tissue up to area of concern in the right breast. A small skin chayo was made with surgical scalpel. There was some initial bleeding which was controlled with direct pressure. Under ultrasound guidance, a 12-gauge vacuum assisted biopsy gun device was used to obtain 5 core samples. A biopsy clip was left in lesion. Hydromark coil core marker was placed. The bleeding was controlled with direct pressure. No hematoma was identified upon completion. The patient tolerated the procedure well without any immediate complication. The patient was kept in the radiology department for short stay after the procedure and then discharged home in stable condition. Discharge instructions were discussed with the patient. All questions were answered. Postprocedure mammogram: The patient was transferred to mammography for physician ordered post procedure mammogram for clip placement verification. Biopsy clip is near some suspicious calcifications within the right breast. Patient is currently scheduled for stereotactic core biopsy of the right breast calcifications. Impression: Successful ultrasound guided core biopsy of area of concern in the right breast, full pathology results to follow. Recommendations: 1. Recommendations are pending pathology results. Pathology Results: Result: Benign, Fat necrosis. RIGHT BREAST, 1:00, ULTRASOUND GUIDED NEEDLE CORE BIOPSY: Scar with fat necrosis, chronic inflammation, histiocytes and calcifications. Negative for malignancy. See note. Notes CKAE1/3 immunostain performed and evaluated with an appropriate positive control is negative for evidence of invasive carcinoma. The findings confirm the above diagnosis. Overall Assessment: Benign Assessment: MG diagnostic mammo RT wo CAD - Right: Benign, BI-RAD 2. Management: Diagnostic Breast Ultrasound of the right breast in 6 months. Electronically signed and approved by: Mian Fong D.O. Radiologis
== END ==
LOC: RADUSWWP 10:06
PROVIDERS: ATTEND Surgery
DX: N64.1 Fat necrosis of breast (principal); R92.1 Mammographic calcification found on diagnostic imaging of breast
CPT/HCPCS: 88305; 88342; 77065; 19083; A4648

== ENCOUNTER → 2022-07-23 | Outpatient (CLI) | payer BC ==
[2022-07-23 16:22] VITALS: BP 113/83; PULSE 118; RESP 17; TEMP 97.3
--- NOTE | 2022-07-23 16:34 | P.PN ---
Subjective Progress Note Date: 07/23/22 Principal diagnosis: DCIS left breast, fat necrosis of the right breast DCIS of the left breast Chely is a 52-year-old white female who underwent a left breast vacuum- assisted stereo core biopsy on 10/07/2017. 2 samples were obtained. The first revealed atypical lobular hyperplasia and a second consistent with atypical ductal hyperplasia with changes suspicious for ductal carcinoma in situ. Her biopsy was initially done at [facility]. The patient upon review of the slides at [facility] had the area of atypical hyperplasia upgraded to a ductal carcinoma in situ measuring approximately 3 mm by direct measurement. This was strongly ER RI positive. The patient subsequently went to the operating room for needle localization and excisional biopsy the area of concern was performed on . The pathology from this resection revealed duct cyst apocrine metaplasia and focal sclerosing adenosis with no evidence of malignancy. The patient is presently on tamoxifen however she chose not to undergo radiation therapy. The patient is not having any side effects from the tamoxifen. A bilateral mammogram was performed 06-06-21. This was benign BIRADS 2. The patient does not feel any masses or nodules in her breast of concern. The patient states that she did have genetic testing performed and was told that she was at increased risk for melanoma but not for breast cancer based on the genetic testing. She follows with dermatology. 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 Landis. She went from a 38D to a 38C/D She had a bilateral mammogram performed on , this resulted in an ultrasound of the right breast. No lesions of concern were identified in the left breast. In the right breast there were some new microcalcifications for which stereotactic core biopsy was recommended in the upper inner aspect of the breast. An ultrasound was performed also an area of nodularity which is felt to be separate from microcalcifications and an ultrasound core biopsy was also recommended. The patient herself does not complain of any new lumps masses or nodules of concern in either breast. The patient had an ultrasound core biopsy of the area of concern in the right breast on this was benign concordant The patient had a stereotactic core biopsy of the right breast and 5423 which was benign concordant The patient states that she developed some swelling at the site which is improvi ng at this time with some mild ecchymosis Family History: maternal grandfather: throat Hormonal History: menarche: 14 breast fed: no, first born at 33 menopause: hysterctomy at 40, did not take ovaries, prolapse BCP: 2 years hormones: Tamoxifen for the past year Surgical history: 1. Hysterectomy 2. Left breast lumpectomy and sentinel node biopsy 3. cyst right breast in 4. bilateral breast reduction in September 2020, she is happy with this Medical history: 1. Enlarged thyroid, multiple biopsies, continued monitoring 2. reflux 3. head tremors will change her heart burn medication; this was worked up and was negative for any lesions Social history: Smoke: Negative Alcohol: Occasional Drugs: Negative - Constitutional Comment: no further fainting Constitutional: Denies chills, Denies fever - EENT Eyes: denies blurred vision, denies pain Ears: deny: decreased hearing, tinnitus Ears, nose, mouth and throat: Denies headache, Denies sore throat, thyroid nodule followed by endocrine - Breasts Breasts: bilateral: as per HPI - Cardiovascular Cardiovascular: Reports high blood pressure - Respiratory Respiratory: Denies cough, - Gastrointestinal Gastrointestinal: Denies abdominal pain, Denies diarrhea, Denies nausea, Denies vomiting - Genitourinary (Female) Genitourinary: Denies dysuria, Denies hematuria - Menstruation Menstruation: Reports post hysterectomy - Musculoskeletal Musculoskeletal: Denies myalgias - Integumentary Integumentary: Denies pruritus, Denies rash - Neurological Neurological: Denies numbness, Denies weakness - Psychiatric Psychiatric: Denies anxiety, Denies depression - Endocrine Comment: enlarged thyroid - Hematologic/Lymphatic Comment: none Objective - Vital Signs Vital signs: Vital Signs Temp 97.3 F L 07/23/22 16:19 Pulse 118 H 07/23/22 16:19 Resp 17 07/23/22 16:19 BP 113/83 07/23/22 16:19 Pulse Ox 96 07/23/22 16:19 FiO2 Intake & Output 07/22/22 07/23/22 07/23/22 18:59 06:59 18:59 Weight 77.111 kg - Constitutional General appearance: Present: cooperative - EENT ENT: Present: hearing grossly normal - Neck Neck: Present: normal ROM - Integumentary Integumentary Comment(s): Biopsies site right breast clean and dry there is a small hematoma with mild ecchymosis Assessment and Plan Assessment: Impression: Patient status post left breast DCIS lumpectomy, patient did not have radiation therapy she is on tamoxifen Recent bilateral mammogram 06-18-22, additional ultrasound views were obtained of the right breast, this was reviewed personally with Dr. Rome recommendation was for stereo biopsy of an area of microcalcifications in the right breast as well as ultrasound-guided core biopsy of a nodular area in the right breast She has had ultrasound-guided core biopsy of the right breast performed on 420 123, this was scar with fat necrosis She has had stereotactic core biopsy of the right breast of 5423 which revealed fat necrosis and scar with calcifications Plan: Continue tamoxifen Right breast mammogram and ultrasound in 6 months left breast mammogram in June 2023 Follow-up. After the above Continue to follow with medical oncology Cc: Dr. Wilkins
== END ==
LOC: WWCWWP 16:02
PROVIDERS: ATTEND Surgery
DX: D05.12 Intraductal carcinoma in situ of left breast (principal); K21.9 Gastro-esophageal reflux disease without esophagitis

== ENCOUNTER → 2023-01-06 | Outpatient (CLI) | payer BC ==
--- NOTE | 2023-01-06 09:00 | MM ---
Reason for Exam: Follow-up at short interval from prior study. Last screening mammogram was performed 6 month(s) ago. Patient History: Menarche at age 14. First Full-Term at age 32. Late child-bearing (after 32). Hysterectomy at age 40. Breast cancer, left, age 47. Hormonal Contraceptives for 3 years from age 19 until age 22. 07/16/2022, Benign MG stereo VAD BX RT on the right side. 07/03/2022, Benign US biopsy breast VAD RT on the right side. 09/2020, Bilateral Reduction. 10/26/2017, High risk Core Biopsy on the left side. Prior Study Comparison: 06/06/2021 Bilateral Diagnostic Mammogram, [facility]. 06/18/2022 Bilateral MG diagnostic mammo w CAD [facility], [facility]. 07/03/2022 Right MG diagnostic mammo RT wo CAD, [facility]. Tissue Density: Right: The breast tissue is heterogeneously dense. This may lower the sensitivity of mammography. Findings: Analyzed By CAD. Pattern appears stable. 2 core markers are within the upper inner right breast. There are some regional scattered benign-appearing punctate calcifications unchanged. Some mild postsurgical distortion likely related to the breast reduction is present. No suspicious groups of microcalcifications, spiculated or lobular masses, architectural distortion or other secondary signs of malignancy are mammographically apparent. Overall Assessment: Benign, BI-RAD 2 Management: Screening Mammogram of both breasts in 6 months. A negative mammogram report should not preclude additional follow up of suspicious palpable abnormalities. Patient should continue monthly self breast exam. A clinical breast exam by your physician is recommended on an annual basis and results should be correlated with mammographic findings. Electronically signed and approved by: Mian Fong D.O. Radiologis
[2023-01-06 09:43] VITALS: BP 123/89; PULSE 84; RESP 17; TEMP 97.8
--- NOTE | 2023-01-06 10:10 | P.PN ---
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 2 samples were obtained. The first revealed atypical lobular hyperplasia and a second consistent with atypical ductal hyperplasia with changes suspicious for ductal carcinoma in situ. Her biopsy was initially done at [facility]. The patient upon review of the slides at [facility] had the area of atypical hyperplasia upgraded to a ductal carcinoma in situ measuring approximately 3 mm by direct measurement. This was strongly ER [place] positive. The patient subsequently went to the operating room for needle localization and excisional [place] [address]. The pathology from this resection revealed duct cyst apocrine metaplasia and focal sclerosing adenosis with no evidence of malignancy. The patient completed 5 years of tamoxifen however she chose not to undergo radiation therapy. The patient states that she did have genetic testing performed and was told that she was at increased risk for melanoma but not for breast cancer based on the genetic testing. She follows with dermatology. 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 Landis. She went from a 38D to a 38C/D She had a bilateral mammogram performed on , this resulted in an ultrasound of the right breast. No lesions of concern were identified in the left breast. In the right breast there were some new microcalcifications for which stereotactic core biopsy was recommended in the upper inner aspect of the breast. An ultrasound was performed also an area of nodularity which is felt to be separate from microcalcifications and an ultrasound core biopsy was also recommended. The patient herself did not complain of any new lumps masses or nodules of concern in either breast. The patient had an ultrasound core biopsy of the area of concern in the right breast on this was benign concordant The patient had a stereotactic core biopsy of the right breast on 5422 which was benign concordant She had a repeat right breast mammogram and ultrasound on 01-06-23. The mammogram is BIRAD 2. The ultrasound is pending. Verbal report on ultrasound repeat in 6 months. She is not complaining of any new lumps masses or nodules of concern in either breast. Note Dr. Calvo reviewed 10-22-22, completed tamoxifen Family History: maternal grandfather: throat Hormonal History: menarche: 14 breast fed: no, first born at 33 menopause: hysterctomy at 40, did not take ovaries, prolapse BCP: 2 years hormones: Tamoxifen for the past year Surgical history: 1. Hysterectomy 2. Left breast lumpectomy and sentinel node biopsy 3. cyst right breast in 4. bilateral breast reduction in September 2020, she is happy with this Medical history: 1. Enlarged thyroid, multiple biopsies, continued monitoring 2. reflux 3. head tremors will change her heart burn medication; this was worked up and was negative for any lesions Social history: Smoke: Negative Alcohol: Occasional Drugs: Negative - Constitutional Comment: no further fainting Constitutional: Denies chills, Denies fever - EENT Eyes: denies blurred vision, denies pain Ears: deny: decreased hearing, tinnitus Ears, nose, mouth and throat: Denies headache, Denies sore throat, thyroid nodule followed by endocrine - Breasts Breasts: bilateral: as per HPI - Cardiovascular Cardiovascular: Reports high blood pressure - Respiratory Respiratory: Denies cough, - Gastrointestinal Gastrointestinal: Denies abdominal pain, Denies diarrhea, Denies nausea, Denies vomiting - Genitourinary (Female) Genitourinary: Denies dysuria, Denies hematuria - Menstruation Menstruation: Reports post hysterectomy - Musculoskeletal Musculoskeletal: Denies myalgias - Integumentary Integumentary: Denies pruritus, Denies rash - Neurological Neurological: Denies numbness, Denies weakness - Psychiatric Psychiatric: Denies anxiety, Denies depression - Endocrine Comment: enlarged thyroid - Hematologic/Lymphatic Comment: none Objective - Vital Signs Vital signs: Vital Signs Temp 97.8 F 01/06/23 09:37 Pulse 84 01/06/23 09:37 Resp 17 01/06/23 09:37 BP 123/89 01/06/23 09:37 Pulse Ox 97 01/06/23 09:37 FiO2 Intake & Output 01/05/23 01/06/23 01/06/23 18:59 06:59 18:59 Weight 72.575 kg - Constitutional General appearance: Present: cooperative - EENT Eyes: Present: EOMI ENT: Present: hearing grossly normal - Neck Neck: Present: normal ROM - Respiratory Respiratory: bilateral: CTA - Cardiovascular Heart sounds: normal: S1, S2 - Integumentary Integumentary: Present: normal turgor - Musculoskeletal Musculoskeletal: Present: gait normal - Psychiatric Psychiatric: Present: A&O x's 3, appropriate affect, intact judgment & insight - Additional findings Additional findings: Breast Exam: BRA: 38C Inspection: Well-healed scars from reduction mammoplasty Palpation: Right breast: Multi-positional exam fibrocystic changes no dominant masses or nodules of concern Right axilla: No adenopathy of concern Left breast: Multiple positional exam fibrocystic changes no dominant masses or nodules of concern Left axilla: No adenopathy of concern Assessment and Plan Assessment: Impression: Patient status post left breast DCIS lumpectomy, patient did not have radiation therapy she is on tamoxifen Recent bilateral mammogram 06-18-22, additional ultrasound views were obtained of the right breast, this was reviewed personally with Dr. Rome recommendation was for stereo biopsy of an area of microcalcifications in the right breast as well as ultrasound-guided core biopsy of a nodular area in the right breast She has had ultrasound[place] [address], this was scar with fat necrosis She has had stereotactic core biopsy of the right breast of 5423 which revealed fat necrosis and scar with calcifications Plan: Right ultrasound in 6 months bilateral mammogram in 6 months Follow-up. After the above Continue to follow with medical oncology Cc: Dr. Wilkins
--- NOTE | 2023-01-06 12:59 | USB ---
Reason for Exam: Follow-up at short interval from prior study. Patient History: Menarche at age 14. First Full-Term at age 32. Late child-bearing (after 32). Hysterectomy at age 40. Breast cancer, left, age 47. Hormonal Contraceptives for 3 years from age 19 until age 22. 07/16/2022, Benign MG stereo VAD BX RT on the right side. 07/03/2022, Benign US biopsy breast VAD RT on the right side. 09/2020, Bilateral Reduction. 10/26/2017, High risk Core Biopsy on the left side. Technique: Method: Whole Breast Handheld. Prior Study Comparison: 06/06/2021 Bilateral Diagnostic Mammogram, [facility]. 06/18/2022 Right US breast limited RT, [facility]. 06/18/2022 Bilateral MG diagnostic mammo w CAD [facility], [facility] 07/03/2022 Right MG diagnostic mammo RT wo CAD, [facility]. Findings: The whole breast of the right breast, the axilla of the right breast and the retroareolar of the right breast were scanned. No solid or cystic masses are identified.. Biopsy clip is identified. It is unclear if the second clip is visualized or not. No suspicious masses are evident. No cysts are evident. Overall Assessment: Benign, BI-RAD 2 Management: Screening Mammogram of both breasts in 6 months. A clinical breast exam by your physician is recommended on an annual basis and results should be correlated with mammographic findings. This exam should not preclude additional follow-up of suspicious palpable abnormalities. Results were given to the patient verbally at the time of exam. Electronically signed and approved by: Mian Fong D.O. Radiologis
== END ==
LOC: WWCWWP 08:17
PROVIDERS: ATTEND Surgery
DX: Z12.31 Encounter for screening mammogram for malignant neoplasm of breast (principal); D05.12 Intraductal carcinoma in situ of left breast; K21.9 Gastro-esophageal reflux disease without esophagitis; E04.9 Nontoxic goiter, unspecified; Z90.12 Acquired absence of left breast and nipple; Z86.000 Personal history of in-situ neoplasm of breast
CPT/HCPCS: 77061; 77065

== ENCOUNTER → 2023-07-12 | Outpatient (CLI) | payer BC ==
--- NOTE | 2023-07-12 14:36 | MM ---
Reason for Exam: Additional evaluation requested from prior study. Last screening mammogram was performed 12 month(s) ago. Patient History: Menarche at age 14. First Full-Term at age 32. Late child-bearing (after 32). Hysterectomy at age 40. Breast cancer, left, age 47. Hormonal Contraceptives for 3 years from age 19 until age 22. 07/16/2022, Benign MG stereo VAD BX RT on the right side. 07/03/2022, Benign US biopsy breast VAD RT on the right side. 09/2020, Bilateral Reduction. 10/26/2017, High risk Core Biopsy on the left side. Prior Study Comparison: 10/30/2013 Screening Mammogram, Unknown. 09/30/2017 Screening Mammogram, Unknown. 04/15/2018 Left Diagnostic Mammogram, [facility]. 10/17/2018 Bilateral Diagnostic Mammogram, [facility]. 11/09/2019 Bilateral Diagnostic Mammogram, [facility]. 11/09/2019 Bilateral Diagnostic Ultrasound, [facility]. 06/04/2020 Bilateral Diagnostic Mammogram, [facility]. 06/06/2021 Bilateral Diagnostic Mammogram, [facility]. 06/18/2022 Right US breast limited RT, [facility]. 06/18/2022 Bilateral MG diagnostic mammo w CAD [facility], [facility]. 07/03/2022 Right MG diagnostic mammo RT wo CAD, [facility]. 01/06/2023 Right MG 3D diag mammo w/cad RT, [facility]. 01/06/2023 Right US breast RT, [facility]. Tissue Density: The breasts are heterogeneously dense, which may obscure small masses. Findings: Analyzed By CAD. Right breast biopsy clip. Left breast surgical clips. No new suspicious masses, calcifications or distortions. Overall Assessment: Benign, BI-RAD 2 Management: Screening Mammogram of both breasts in 1 year. Results were given to the patient verbally at the time of exam. Patient should continue monthly self-breast exams. A clinical breast exam by your physician is recommended on an annual basis. This exam should not preclude additional follow-up of suspicious palpable abnormalities. Note on Zeina scores and lifetime risk: 1. A Zeina score greater than 3% is considered moderate risk. If this is the case, consider specialist referral to assess eligibility for a risk reducing agent. 2. If overall lifetime risk for the development of breast cancer is 20% or higher, the patient may qualify for future screening with alternating mammogram and breast MRI. Electronically signed and approved by: Jarek Kaye DO
== END | disposition home or self-care (01) ==
LOC: RADMAMWWP 14:09
PROVIDERS: ATTEND Surgery
DX: R92.8 Other abnormal and inconclusive findings on diagnostic imaging of breast (principal); R92.333 Mammographic heterogeneous density, bilateral breasts; Z85.3 Personal history of malignant neoplasm of breast
CPT/HCPCS: 77062; 77066

== ENCOUNTER → 2023-09-06 | Outpatient (CLI) | payer BC ==
--- NOTE | 2023-09-06 18:55 | US ---
EXAMINATION TYPE: US thyroid st tissue head/neck DATE OF EXAM: 09/06/2023 COMPARISON: NONE CLINICAL INDICATION: Female, 53 years old with history of E04.2 NONTOXIC MULTINODULAR GOITER; hx of t hyroid nodules. Pt states pt has had multiple biopsies done. GLAND SIZE: Right Lobe: 7.3 x 4.3 x 3.7 cm Overall Parenchyma: heterogeneous Left Lobe: 8.0 x 3.8 x 3.7 cm Overall Parenchyma: heterogeneous Isthmus Thickness: 0.6 cm NODULES RIGHT: # of nodules measured on right: 3 1. 3.7 X 3.0 x 2.2 cm, mid lateral, TIRADS Score: 4 TIRADS Category 4: Composition: Solid or almost completely solid (2 points). Echogenicity: Hypoechoic (2 points). Shape: Wider than tall (0 points). Margin: Smooth (0 points). Echogenic foci: None or large comet-tail artifacts (0 points) Recommendation: If >1.5cm: FNA; If >1cm: Follow up at 1,2, 3,5 years 2. 4.3 X 3.2 x 2.5 cm, lower mid, TIRADS Score: 4 TIRADS Category 4: Composition: Solid or almost completely solid (2 points). Echogenicity: Hypoechoic (2 points). Shape: Wider than tall (0 points). Margin: Smooth (0 points). Echogenic foci: None or large comet-tail artifacts (0 points) Recommendation: If >1.5cm: FNA; If >1cm: Follow up at 1,2, 3,5 years 3. 1.7 X 1.7 x 1.1 cm, upper mid, TIRADS Score: 4 TIRADS Category 4: Composition: Solid or almost completely solid (2 points). Echogenicity: Hypoechoic (2 points). Shape: Wider than tall (0 points). Margin: Smooth (0 points). Echogenic foci: None or large comet-tail artifacts (0 points) Recommendation: If >1.5cm: FNA; If >1cm: Follow up at 1,2, 3,5 years LEFT: # of nodules measured on left: 1 1. 3.9 X 3.6 x 2.8 cm, lower mid, TIRADS Score: 3 TIRADS Category 3: Composition: Solid or almost completely solid (2 points). Echogenicity: Hyperechoic or isoechoic (1 point). Shape: Wider than tall (0 points). Margin: Smooth (0 points). Echogenic foci: None or large comet-tail artifacts (0 points) Recommendation: If >2.5cm: FNA; If >1.5cm: Follow up at 1,3,5 years ISTHMUS: # of nodules measured in the isthmus: 0 Bilateral neck scanned, no evidence of lymphadenopathy. Overall heterogeneous thyroid. Nodules difficult to get distinct borders. IMPRESSION: Multiple thyroid nodules as described above some of which may criteria for biopsy.
== END | disposition home or self-care (01) ==
LOC: RADUSWWP 16:00
PROVIDERS: ATTEND Internal Medicine Endocrinology, Diabetes & Metabolism
DX: E04.2 Nontoxic multinodular goiter (principal)
CPT/HCPCS: 76536

== ENCOUNTER → 2023-11-12 | Outpatient (CLI) | payer BC ==
[2023-11-12 15:44] LABS: T4, Free (Free Thyroxine) 0.84 ng/dL (0.80-1.80)
== END | disposition home or self-care (01) ==
LOC: LABWHC1 11:25
PROVIDERS: ATTEND Internal Medicine Endocrinology, Diabetes & Metabolism
DX: E04.2 Nontoxic multinodular goiter (principal)
CPT/HCPCS: 36415; 84439; 84443

== ENCOUNTER → 2023-12-31 | Outpatient (CLI) | payer BC ==
[2023-12-31 18:42] LABS: T4, Free (Free Thyroxine) 0.87 ng/dL (0.80-1.80)
== END | disposition home or self-care (01) ==
LOC: LABWHC1 13:50
PROVIDERS: ATTEND Internal Medicine Endocrinology, Diabetes & Metabolism
DX: E04.2 Nontoxic multinodular goiter (principal)
CPT/HCPCS: 36415; 84439; 84443; 84445; 84481

== ENCOUNTER → 2024-01-24 | Outpatient (CLI) | payer BC ==
[2024-01-25 03:22] LABS: T4, Free (Free Thyroxine) 0.88 ng/dL (0.80-1.80)
== END | disposition home or self-care (01) ==
LOC: LABWHC1 16:27
PROVIDERS: ATTEND Internal Medicine Endocrinology, Diabetes & Metabolism
DX: E04.2 Nontoxic multinodular goiter (principal)
CPT/HCPCS: 36415; 84439; 84443; 84480

== ENCOUNTER → 2024-02-01 | Outpatient (CLI) | payer BC | END | disposition home or self-care (01) | LOC: LABWHC1 16:23 | PROVIDERS: ATTEND Internal Medicine Endocrinology, Diabetes & Metabolism | DX: E05.80 Other thyrotoxicosis without thyrotoxic crisis or storm (principal) | CPT/HCPCS: 36415; 84439; 84443; 84480 ==

== ENCOUNTER → 2024-02-09 | Outpatient (CLI) | payer BC ==
[2024-02-09 18:55] LABS: Basophils # (A) 0.04 X 10*3/uL (0.00-0.10); Basophils % (A) 0.5 %; Eosinophils # (A) 0.19 X 10*3/uL (0.04-0.35); Eosinophils % (A) 2.5 %; HCT 40.2 % (37.2-46.3); HGB 13.2 g/dL (12.0-15.0); Lymphocytes # (A) 2.25 X 10*3/uL (0.90-5.00); Lymphocytes % (A) 29.3 %; MCH 31.1 pg (27.0-32.0); MCHC 32.8 g/dL (32.0-37.0); MCV 94.8 FL (80.0-97.0); Monocytes # (A) 0.69 X 10*3/uL (0.20-1.00); NRBC Per 100 WBC 0 X 10*3/uL (0.00-0.01); Neutrophils # (A) 4.48 X 10*3/uL (1.80-7.70); Neutrophils % (A) 58.4 %; Platelet Count 314 X 10*3/uL (140-440); RBC 4.24 X 10*6/uL (4.10-5.20); WBC 7.67 X 10*3/uL (4.50-10.00)
[2024-02-09 19:00] LABS: ALT 20 U/L (8-44); AST 19 U/L (13-35); Albumin 4.3 g/dL (3.8-4.9); Albumin/Globulin Ratio 1.95 Ratio (1.60-3.17); Alkaline Phosphatase 83 U/L (41-126); Blood Urea Nitrogen 13.2 mg/dL (9.0-27.0); Carbon Dioxide 24.1 mmol/L (21.6-31.8); Chloride 107 mmol/L (96-109); Globulin 2.2 g/dL (1.6-3.3); Glucose 89 mg/dL (70-110); Potassium 4.4 mmol/L (3.5-5.5); Sodium 140 mmol/L (135-145); Total Bilirubin 0.4 mg/dL (0.3-1.2); Total Protein 6.5 g/dL (6.2-8.2)
== END | disposition home or self-care (01) ==
LOC: LABWHC1 14:14
PROVIDERS: ATTEND Internal Medicine Endocrinology, Diabetes & Metabolism
DX: E05.80 Other thyrotoxicosis without thyrotoxic crisis or storm (principal)
CPT/HCPCS: 36415; 80053; 85025

== ENCOUNTER → 2024-08-28 | Outpatient (CLI) | payer BC ==
--- NOTE | 2024-08-28 11:59 | MM ---
Reason for Exam: Screening (asymptomatic). Last mammogram was performed 1 year(s) and 2 month(s) ago. Patient History: Menarche at age 14. First Full-Term at age 32. Late child-bearing (after 32). Hysterectomy at age 40. Breast cancer, left, age 47. Hormonal Contraceptives for 3 years from age 19 until age 22. 07/16/2022, Benign MG stereo VAD BX RT on the right side. 07/03/2022, Benign US biopsy breast VAD RT on the right side. 09/2020, Bilateral Reduction. 10/26/2017, High risk Core Biopsy on the left side. Prior Study Comparison: 07/03/2022 Right MG diagnostic mammo RT wo CAD, [facility]. 01/06/2023 Right MG 3D diag mammo w/cad RT, [facility]. 07/12/2023 Bilateral MG 3D diag mammo w/cad [facility], [facility]. Tissue Density: The breasts are heterogeneously dense, which may obscure small masses. Findings: Analyzed By CAD. Nodular asymmetric density superior right MLO view middle to posterior depth is more defined. Further evaluation is recommended. Postsurgical and posttreatment changes left breast. Bilateral postreduction mammoplasty changes redemonstrated. No suspicious microcalcification or other discrete abnormality is seen. 2 microclips right breast from prior biopsies. Overall Assessment: Incomplete: need additional imaging evaluation, BI-RAD 0 Management: Special View Mammogram of the right breast. [facility] will attempt to contact patient to return for supplemental views and ultrasound if indicated. [facility], , 08/28/2024 11:56 AM. Electronically signed and approved by: Nyla Rome M.D. Radiologist
== END | disposition home or self-care (01) ==
LOC: RADMAMWWP 11:21
PROVIDERS: ATTEND Surgery
DX: Z12.31 Encounter for screening mammogram for malignant neoplasm of breast (principal); R92.333 Mammographic heterogeneous density, bilateral breasts; Z85.3 Personal history of malignant neoplasm of breast
CPT/HCPCS: 77063; 77067

== ENCOUNTER → 2024-09-04 | Outpatient (CLI) | payer BC ==
--- NOTE | 2024-09-04 13:16 | MM ---
Reason for Exam: Additional evaluation requested from abnormal screening. Last screening mammogram was performed less than 1 month ago. Patient History: Menarche at age 14. First Full-Term at age 32. Late child-bearing (after 32). Hysterectomy at age 40. Breast cancer, left, age 47. Hormonal Contraceptives for 3 years from age 19 until age 22. 07/16/2022, Benign MG stereo VAD BX RT on the right side. 07/03/2022, Benign US biopsy breast VAD RT on the right side. 09/2020, Bilateral Reduction. 10/26/2017, High risk Core Biopsy on the left side. Tissue Density: Right: The breasts are heterogeneously dense, which may obscure small masses. Findings: Analyzed By CAD. Focal asymmetry in the upper outer quadrant possibly 10-1 o'clock measuring 7 mm and 7-8 cm from the nipple. Overall Assessment: Incomplete: need additional imaging evaluation, BI-RAD 0 Management: Diagnostic Breast Ultrasound of the right breast. Results were given to the patient verbally at the time of exam. Patient should continue monthly self-breast exams. A clinical breast exam by your physician is recommended on an annual basis. This exam should not preclude additional follow-up of suspicious palpable abnormalities. Note on Zeina scores and lifetime risk: 1. A Zeina score greater than 3% is considered moderate risk. If this is the case, consider specialist referral to assess eligibility for a risk reducing agent. 2. If overall lifetime risk for the development of breast cancer is 20% or higher, the patient may qualify for future screening with alternating mammogram and breast MRI. [facility], , 09/04/2024 1:12 PM. Electronically signed and approved by: Jarek Kaye DO
--- NOTE | 2024-09-04 13:37 | USB ---
Reason for Exam: Clinical finding. Patient History: Menarche at age 14. First Full-Term at age 32. Late child-bearing (after 32). Hysterectomy at age 40. Breast cancer, left, age 47. Hormonal Contraceptives for 3 years from age 19 until age 22. 07/16/2022, Benign MG stereo VAD BX RT on the right side. 07/03/2022, Benign US biopsy breast VAD RT on the right side. 09/2020, Bilateral Reduction. 10/26/2017, High risk Core Biopsy on the left side. Technique: Method: Targeted. Prior Study Comparison: 01/06/2023 Right MG 3D diag mammo w/cad RT, [facility]. 07/12/2023 Bilateral MG 3D diag mammo w/cad [facility], [facility]. 08/28/2024 Bilateral MG 3D screening mammo w/cad, [facility]. Findings: The upper outer quadrant of the right breast, the axilla of the right breast and the retroareolar of the right breast were scanned. Technique utilized:US breast workup limited RT Image; Ultrasound imaging of: Area of concern, retroareolar region and axilla. At 9:00 8 cm from the nipple is a 10 x 5 x 7 mm which is oval with small tail possible duct extending away from it. Questionable debris within this lesion. Additional 12:00 3 mm anechoic cyst 6 cm from the nipple. Overall Assessment: Probably benign, BI-RAD 3 Management: Diagnostic Breast Ultrasound of the right breast in 6 months. Short-term follow-up for cystic lesion with possible duct distention at 9:00 8 cm from the nipple. A clinical breast exam by your physician is recommended on an annual basis and results should be correlated with mammographic findings. This exam should not preclude additional follow-up of suspicious palpable abnormalities. Results were given to the patient verbally at the time of exam. [facility], , 09/04/2024 1:33 PM. Electronically signed and approved by: Jarek Kaye DO
== END | disposition home or self-care (01) ==
LOC: RADMAMWWP 12:47
PROVIDERS: ATTEND Surgery
DX: R92.8 Other abnormal and inconclusive findings on diagnostic imaging of breast (principal); R92.331 Mammographic heterogeneous density, right breast; Z85.3 Personal history of malignant neoplasm of breast; Z92.0 Personal history of contraception
CPT/HCPCS: 77061; 77065

== ENCOUNTER → 2024-09-28 | Outpatient (CLI) | payer BC ==
[2024-09-28 10:56] VITALS: BP 107/77; PULSE 96; RESP 17; TEMP 97.8
--- NOTE | 2024-09-28 11:09 | P.PN ---
Subjective Progress Note Date: 09/28/24 Principal diagnosis: DCIS left breast 2017 , right breast fat necrosis 01/06/23 DCIS left breast, fat necrosis of the right breast Chely is a 53-year-old white female who underwent a left breast vacuum- assisted stereo core biopsy on 10/07/2017. 2 samples were obtained. The first revealed atypical lobular hyperplasia and a second consistent with atypical ductal hyperplasia with changes suspicious for ductal carcinoma in situ. Her biopsy was initially done at [facility]. The patient upon review of the slides at [facility] had the area of atypical hyperplasia upgraded to a ductal carcinoma in situ measuring approximately 3 mm by direct measurement. This was strongly ER NV positive. The patient subsequently went to the operating room for needle localization and excisional biopsy the area of concern was performed on . The pathology from this resection revealed duct cyst apocrine metaplasia and focal sclerosing adenosis with no evidence of malignancy. The patient completed 5 years of tamoxifen however she chose not to undergo radiation therapy. The patient states that she did have genetic testing performed and was told that she was at increased risk for melanoma but not for breast cancer based on the genetic testing. She follows with dermatology. 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 Landis. She went from a 38D to a 38C/D She had a bilateral mammogram performed on , this resulted in an ultrasound of the right breast. No lesions of concern were identified in the left breast. In the right breast there were some new microcalcifications for which stereotactic core biopsy was recommended in the upper inner aspect of the breast. An ultrasound was performed also an area of nodularity which is felt to be separate from microcalcifications and an ultrasound core biopsy was also recommended. The patient herself did not complain of any new lumps masses or nodules of concern in either breast. The patient had an ultrasound core biopsy of the area of concern in the right b reast on this was benign concordant The patient had a stereotactic core biopsy of the right breast on 5422 which was benign concordant She had a repeat right breast mammogram and ultrasound on 01-06-23. The mammogram is BIRAD 2. The ultrasound is pending. Verbal report on ultrasound repeat in 6 months. She is not complaining of any new lumps masses or nodules of concern in either breast. Note Dr. Calvo reviewed 10-22-22, completed tamoxifen 09-28-24 DCIS left breast, fat necrosis of the right breast Chely is a 54-year-old white female who underwent a left breast vacuum- assisted stereo core biopsy on 10/07/2017. 2 samples were obtained. The first revealed atypical lobular hyperplasia and a second consistent with atypical ductal hyperplasia with changes suspicious for ductal carcinoma in situ. Her biopsy was initially done at [facility]. The patient upon review of the slides at [facility] had the area of atypical hyperplasia upgraded to a ductal carcinoma in situ measuring approximately 3 mm by direct measurement. This was strongly ER NV positive. The patient subsequently went to the operating room for needle localization and excisional biopsy the area of concern was performed on . The pathology from this resection revealed duct cyst apocrine metaplasia and focal sclerosing adenosis with no evidence of malignancy. The patient completed 5 years of tamoxifen however she chose not to undergo radiation therapy. The patient states that she did have genetic testing performed and was told that she was at increased risk for melanoma but not for breast cancer based on the genetic testing. She follows with dermatology. 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 Landis. She went from a 38D to a 38C/D She had a bilateral mammogram performed on , this resulted in an ultrasound of the right breast. No lesions of concern were identified in the left breast. In the right breast there were some new microcalcifications for which stereotactic core biopsy was recommended in the upper inner aspect of the breast. An ultrasound was performed also an area of nodularity which is felt to be separate from microcalcifications and an ultrasound core biopsy was also recommended. The patient herself did not complain of any new lumps masses or nodules of concern in either breast. The patient had an ultrasound core biopsy of the area of concern in the right breast on this was benign concordant The patient had a stereotactic core biopsy of the right breast on 5422 which was benign concordant Her most recent bilateral mammogram was on 08-28-24 and was BIRAD 0; on 09-04-24 additional views of the right breast were done and were also BIRAD 0, an ultrasound was done on the same date which revealed at the 9 o'clock position a 10 x 5 x 7 mm oval area with a possible duct extending from questionable debris within the lesion. Recommendation was for a repeat right breast ultrasound in 6 months this is at 9:00 8 cm from the nipple Note 09-26-24 Dr. Calvo reviewed was seen for leukocytosis following thyroid resection, completed 5 years of tamoxifen; leukocytosis felt to be RXN She had a colonoscopy and 09-27-2024 and was noted to have 20 polyps. Not all were removed and so she is having a repeat colonoscopy in 6 months. She is not having any symptoms. Family History: maternal grandfather: throat Hormonal History: menarche: 14 breast fed: no, first born at 33 menopause: hysterctomy at 40, did not take ovaries, prolapse BCP: 2 years hormones: Tamoxifen for the past year Surgical history: 1. Hysterectomy 2. Left breast lumpectomy and sentinel node biopsy 3. cyst right breast in 4. bilateral breast reduction in September 2020, she is happy with this 5. thyroid resection 6. colonoscopy Medical history: 1. Enlarged thyroid, multiple biopsies, continued monitoring 2. reflux 3. head tremors will change her heart burn medication; this was worked up and was negative for any lesions Social history: Smoke: Negative Alcohol: Occasional Drugs: Negative - Constitutional Comment: no further fainting Constitutional: Denies chills, Denies fever - EENT Eyes: denies blurred vision, denies pain Ears: deny: decreased hearing, tinnitus Ears, nose, mouth and throat: Denies headache, Denies sore throat, thyroid nodule followed by endocrine - Breasts Breasts: bilateral: as per HPI - Cardiovascular Cardiovascular: Reports high blood pressure - Respiratory Respiratory: Denies cough, - Gastrointestinal Gastrointestinal: Denies abdominal pain, Denies diarrhea, Denies nausea, Denies vomiting - Genitourinary (Female) Genitourinary: Denies dysuria, Denies hematuria - Menstruation Menstruation: Reports post hysterectomy - Musculoskeletal Musculoskeletal: Denies myalgias - Integumentary Integumentary: Denies pruritus, Denies rash - Neurological Neurological: Denies numbness, Denies weakness - Psychiatric Psychiatric: Denies anxiety, Denies depression - Endocrine Comment: enlarged thyroid - Hematologic/Lymphatic Comment: none Objective - Constitutional General appearance: Present: cooperative - EENT Eyes: Present: EOMI ENT: Present: hearing grossly normal - Neck Neck: Present: normal ROM - Respiratory Respiratory: bilateral: CTA - Cardiovascular Rhythm: regular Heart sounds: normal: S1, S2 - Integumentary Integumentary: Present: normal turgor - Musculoskeletal Musculoskeletal: Present: gait normal - Psychiatric Psychiatric: Present: A&O x's 3, appropriate affect, intact judgment & insight - Additional findings Additional findings: Breast Exam: BRA: 38C Inspection: Well-healed scars from reduction mammoplasty Palpation: Right breast: Multi-positional exam fibrocystic changes no dominant masses or nodules of concern Right axilla: No adenopathy of concern Left breast: Multiple positional exam fibrocystic changes no dominant masses or nodules of concern Left axilla: No adenopathy of concern Assessment and Plan Assessment: Impression: Patient status post left breast DCIS lumpectomy, patient did not have radiation therapy she has completed the tamoxifen bilateral mammogram 06-18-22, additional ultrasound views were obtained of the right breast, this was reviewed personally with Dr. Rome recommendation was for stereo biopsy of an area of microcalcifications in the right breast as well as ultrasound-guided core biopsy of a nodular area in the right breast She has had ultrasound-guided core biopsy of the right breast performed on , this was scar with fat necrosis She has had stereotactic core biopsy of the right breast of 5423 which revealed fat necrosis and scar with calcifications Bilateral mammogram on 08-28-24 lef to right breast diag mammo and ultrasound to repeat right breast ultrasound in 6 months Plan: Right ultrasound in 6 months with follow up bilateral mammogram in 6 months Follow-up. After the above Continue to follow with medical oncology Cc: Dr. Wilkins
== END ==
LOC: WWCWWP 10:32
PROVIDERS: ATTEND Surgery
DX: N64.1 Fat necrosis of breast (principal); Z98.890 Other specified postprocedural states; Z85.3 Personal history of malignant neoplasm of breast